=== PATIENT | male | born 1965 | race Caucasian/White ===

== ENCOUNTER 2017-01-27 13:34 | Emergency (ER) | payer MEDICAID ==
[~2017-01-27] VITALS: Ht 180.3 cm; Wt 60.8 kg
[~2017-01-27 13:34] MED LIST: AUGMENTIN1 TA3 PO; BENADRYL 25MG C25 MG PO; CYCLOBENZAPRINE10 M2 OR; FLUTICASONE 50M16 GM; HYDROCODONE-APA1 TA2 PO; IBU600 MG PO; LODINE200 MG PO; NYSTATIN SU60 ML/BOT PO; TAMSULOSIN HYD0.4 M1 PO; VENTOLIN H0.09 MG/Ac IH
[2017-01-27] MEDS ORDERED: ATORVASTATIN CA80 MG PO (13:42)
[2017-01-27] MEDS ORDERED: CYCLOBENZAPRINE10 M1 OR (13:43)
[2017-01-27] MEDS ORDERED: METOPROLOL SUCC50 M4 PO (13:43)
[2017-01-27] MEDS ORDERED: AMITRIPTYLINE H10 M1 PO (13:43)
[2017-01-27] MEDS ORDERED: BRILINTA90 M1 PO (13:44)
[2017-01-27] MEDS ORDERED: ISOSORBIDE MONO60 M1 PO (13:45)
[2017-01-27] MEDS ORDERED: LISINOPRIL5 MG NG (13:45)
[2017-01-27] MEDS ORDERED: TAMSULOSIN HCL0.4 MG PO (13:46)
[2017-01-27] MEDS ORDERED: ALDACTONE 25MG25 MG NG (13:46)
[2017-01-27] MEDS ORDERED: ASPIRIN 81MG TA81 MG PO (13:47)
--- NOTE | 2017-01-27 13:52 | Urgent Treatment Center Report ---
History of Present Issue Date/Time Seen by Provider 01/27/17 7681 Visit Reason Pt arrived:Walked Presenting Problem:PT STATES HIS LEG WENT THROUGHT THE WAGON. Location if Accident: Onset of symptoms date/time:/ or onset unknown for:MEDICAL HX UNKNOWN Have you (or family members/close friends) recently traveled outside the [place]? N If Yes, where/when: Have you had exposure to infectious disease within the past month? TB? Other? Specify: c/o left knee pain x 2 days. Reports that 2 days ago, a tobacco wagon broke and his right leg went through the hole. "I went to my knee with the left one landing on wagon". No pain at that time. Pain didn't start until that evening when pt was on his hands and knees cleaning his bathroom floor. Pain primarily with weight bearing only. ibuprofen helps "briefly". Pain radiates to ankle at times. Denies N/T. No limited ROM. Source patient Exam Limitations no limitations ALLERGIES Coded Allergies: No Known Allergies (09/10/15) Home Medications Reported Medications Albuterol Sulfate (Ventolin Hfa) 0.09 MG IH DAILY #18 Atorvastatin Calcium 80 MG PO DAILY #30 AMITRIPTYLINE HCL (Amitriptyline Hydrochloride) 10 MG PO QHS #90 Metoprolol Succinate (Metoprolol Succinate XL) 50 MG PO DAILY #45 Cyclobenzaprine Hcl 10 MG OR DAILY #30 Ticagrelor (Brilinta) 90 MG PO BID #60 Lisinopril 5 MG NG DAILY #90 Isosorbide Mononitrate (Isosorbide Mononitrate ER) 60 MG PO DAILY #30 Spironolactone (Aldactone) 25 MG NG DAILY #15 TAMSULOSIN HCL (Tamsulosin HCl) 0.4 MG PO DAILY #30 Ibuprofen (Ibu) 800 MG PO TID Cyclobenzaprine Hcl (Cyclobenzaprine Hydrochloride) 10 MG OR DAILY #30 FLUTICASONE PROPIONATE (Fluticasone 50MCG Nasal [place]) 2 SPRAY NA DAILY TAMSULOSIN HCL (Tamsulosin HCl) 0.4 MG PO QHS Diphenhydramine Hcl (Benadryl 25MG CAP) 1-2 CAP PO Q6H PRN ASPIRIN (Aspirin) 81 MG PO DAILY History Medical History General CAD? No Angina: No [place]: No Hypertension? No Hyperlipidemia? No CHF? No COPD? Yes Asthma? No Anemia? No Hernia? No Thyroid Problems? Yes Hypothyroidism? No CVA? No Seizures? No Diabetes? No UTI? No Stones? No GB Disease: No Nephritic Syndrome? No Asplenia? No Hepatitis? No Sickle Cell Disease? No Arthritis? No Cataracts? No Glaucoma? No MRSA? No TB? No Cancer? No Immunization HX DT/Tetanus Unknown Flu 2013-FSN Pneumonia Refuses Surgical Hx Previous Surgery?Y CYST FROM NECK LEFT FOOT Family History Family HX Diabetes Yes CAD No Hypertension Yes Hyperlipidemia Yes Cancer No TB No Social History Smoking Hx Smoker: Current Every Day Smoker Tobacco: Yes Type Cigarettes Packs/day < 1 Pack Alcohol Alcohol: No Review of Systems All Other Systems Reviewed and Negative Musculoskeletal see HPI, denies back pain, denies other (hip, leg, ankle, foot pain) Skin denies change in color, denies lesions, denies lumps, denies rash Psychiatric/Neurological see HPI Physical Exam Vital Signs Vital Signs Date Time Temp Pulse Resp B/P Pulse O2 O2 Flow FiO2 Ox Delivery Rate 01/27 1423 98.4 67 20 100/67 99 01/27 1347 98.4 67 20 100/67 99 General Appearance normal appearance, no apparent distress Respiratory Status No: respiratory distress. Cardiovascular no peripheral edema Peripheral Pulses Pulses normal Yes (PT/DP) Back gait normal Extremities normal inspection of left thigh, knee, lower leg, ankle, foot; mild tenderness left lateral knee only, FROM left knee, negative anterior & posterior drawer tests, negative franco and jacinda tests Strength 5 Lower Ext (L), 5 Lower Ext (R) Neurologic alert, no motor/sensory deficits, oriented x 3 Skin intact, normal color, warm/dry Medical Decision Making LABS/Meds/Orders Pt receiving controlled substance in ED? No Results/Orders Orders Procedure Date/time Status STABILIZE JOINT 01/27 1418 Active KNEE-3 VIEWS-LT 01/27 1340 Active XRAY/CT/US XRAY/CT/US XRAY chest, knee (left) XR interpretation by reviewed by me (w/ Dr. Miranda, ER ) Xray Results no fracture seen, no dislocation, no acute findings Progress [facility] Progress Notes Date 01/27/17 Time 1415 Comment Rvwd dx and POC. Agrees to follow up. refuses crutches. "I have them at home if I decide to use them". STRONGLY enc to use as needed, especially if pain worse with ambulation. States + understanding. Departure Departure Time of Disposition 1419 Disposition DC Home or Self Care(routine) Clinical Impression Primary Impression: Left knee sprain Qualifiers: Encounter type: initial encounter Involved ligament of knee: lateral collateral ligament Qualified Code: S83.422A - Sprain of lateral collateral ligament of left knee, initial encounter Condition STABLE Referrals ELSA VALENZUELA APRN (Family) IMMEDIATELY for new or worsening symptoms OR no noticeable improvement over the next 3-5 days Patient Instructions DI for Knee Sprain, How to Apply an Luis Miguel Wrap, How To Perform RICE (Rest, Ice, Compress, Elevate) Additional Instructions * weight bearing as tolerated. If painful, you should be using crutches. * Rest * ice 15-20 mins 3-4 times a day * Luis Miguel wrap for support and swelling unless in shower. Be sure not too tight but not too loose either * Elevate as discussed as much as possible to help reduce swelling and therefore , pain * Ibuprofen every 6 hours as needed for pain and inflammation. If you need something more, you can take tylenol every 4 hours as needed as long as your primary care provider has told you it is ok to take both. * If no improvement or any persistant symptoms, follow up is important as additional interventions may be necessary. Discharge Counseling Counseled pt/family regarding diagnosis, test results, medications/RX, home care, follow up needs at 1430
[2017-01-27 14:23] VITALS: BP 100/67
--- NOTE | 2017-01-27 15:39 | RADIOLOGY REPORT PS360 ---
KNEE-3 VIEWS-LT COMPARISON: None HISTORY: Left knee pain after recent injury TECHNIQUE: AP lateral and oblique views FINDINGS: The medial and lateral joint space appear normal. Is no fracture or loose body. There is no degenerative change. The patella appears intact and I see no effusion. IMPRESSION: Negative left knee
--- OUTSIDE RECORDS SUMMARY | 2017-02-04 14:19 | External Medical Summary Rpt | CCD ---
Author Author , ROSALBA Organization ROSALBA Address Unknown Phone [email or web address] Care Team Providers Care Flight Readiness Technician Name Role Phone LOLY-OMER AHM, Unavailable Unavailable LOLY-OMER AHM [facility] , Unavailable Unavailable [facility] , Unavailable Unavailable [facility] ALFARIS MOH, ALFARIS Unavailable Unavailable MOH ARAGON, ARAGON Unavailable Unavailable BEINEKE OLGA LIDIA, BEINEKE Unavailable Unavailable OLGA LIDIA HENDERSON ALL, HENDERSON ALL Unavailable Unavailable COMER DB, COMER DB Unavailable Unavailable LIZA EDER, Unavailable Unavailable LIZA EDER ELAYI, ELAYI Unavailable Unavailable [facility] Unavailable Unavailable SERVBLUEGRAS, [facility] SERVBLUEGRAS [facility] Unavailable Unavailable [facility]SP[facility]ATION [facility], [facility] BECKETT, BECKETT Unavailable Unavailable [facility] Unavailable Unavailable INC, [facility] Unavailable [facility]available HOSPITAL P, [facility] [place] AYAH, SOLIS Unavailable Unavailable AYAH [facility], Unavailable Unavailable [facility] BIANCA, BIANCA Unavailable Unavailable BIANCA NAN, BIANCA Unavailable Unavailable NAN [facility] Un[facility], MERLINE Unavailable Unavailable [facility] Un[facility] LARRY JR DWI, LARRY Unavailable Unavailable JR DWI JOHNNIE MJ, JOHNNIE Unavailable Unavailable MJ JOHNNIE MJ, JOHNNIE Unavailable Unavailable MJ ANGIE, ANGIE Unavailable Unavailable ANGIE CON, ANGIE CON Unavailable Unavailable DWIGHT ODALIS, Unavailable Unavailable DWIGHT ODALIS [facility] Unavailable Unavailable [facility] Unavailable [facility]available AMBULANCE SE, [facility] Unavailable Unavailable AMBULANCE , [facility] SE [facility] Unavailable [facility]available HEALTH, [facility] Unavailable Unavailable URGENT TREAT, [facility] PETTEY JAM, PETTEY Unavailable Unavailable JAM RASLAU FLA, RASLAU Unavailable Unavailable FLA SHARP L, SHARP Unavailable Unavailable L KALEB DUGGAN, Unavailable Unavailable KALEB DUGGAN SAHARA PAR, SAHARA PAR Unavailable Unavailable [facility] Unavailable [facility]available [facility], [facility] Unavailable Unavailable [facility], [facility], Unavailable Unavailable [facility]available [facility] HARTLEY TIGIST, HARTLEY Unavailable Unavailable TIGIST CHARISSASHARAN, Unavailable Unavailable LEYLAJAY JAYDONNADELFINA Purpose Continuity of Care Document - 08-09-2013 through 2016 Problems Code Diagnosis DOS Provider Status [id number] ENCOUNTER 12-24-2016 [facility] FOLLOW SURGERY CIRC SYS [id number] PRESENCE 12-24-2016 [facility] IMPLANT[facility] HOSPITALS CARDIAC DEFIBRILLAT OR I255 ISCHEMIC 12-17-2016 [facility]IOMYOP[facility] THY [facility] I517 CARDIOMEGAL 12-17-2016 [facility] E785 HYPERLIPIDE 12-07-2016 [facility] UNSPECIFIED HOSPITALS I2510 [place]SHD [place] 12-07-2016 [facility]CARE ARTERY W/O HOSPITALS ANGINA PECT[place]IS M5430 SCIATICA 12-07-2016 UNSPECIFIED [facility]ALTHCARE SIDE HOSPITALS R001 BRADYCARDIA 11-02-2016 [facility]PEC[facility] R55 SYNCOPE AND 11-02-2016 [facility] COLLAPSE [facility] R69 ILLNESS 11-02-2016 [facility] UNSPECIFIED TRANSPORTAT ION SER R9431 ABNORMAL 11-02-2016 [facility] ELECTROCARD SERV IOGRAM [facility] [id number] PERSONAL 11-02-2016 [facility] H[facility] OF SERV NICOTINE [facility] DEPENDENCE J0100 ACUTE 09-24-2016 [facility] SINUSITIS SOLUTIONS UNSPECIFIED IN I252 OLD 07-20-2016 [facility] I5020 UNSPECIFIED 07-20-2016 [facility] SYSTOLIC [facility] CONGESTIVE [facility] HEART FAILURE R42 DIZZINESS 07-20-2016 [facility] GIDDINESS HOSPITALS Z720 TOBACCO USE 07-20-2016 [facility]ALTH[facility]ARE HOSPITALS Z955 PRESENCE OF 07-20-2016 [facility] ANGIOPLASTY HOSPITALS IMPLANT & GRAFT J208 ACUTE 06-23-2016 [facility] BRONCHITIS [facility]ALTH DUE TO SOLUTIONS OTHER SPEC IN ORGANISMS R05 COUGH 06-23-2016 [facility] SOLUT[facility] IN I2129 ST 04-22-2016 [facility] ELEVATION [facility] MYOCARDIAL SOLUTIONS INFARCT IN [facility] SITES I9589 OTHER 04-22-2016 [facility] HYPOTENSION HEALTH SOLUTIONS IN R0789 OTHER CHEST 04-22-2016 [facility] PAIN HEALTH SOLUTIONS IN R0600 DYSPNEA 04-13-2016 UNSPECIFIED [facility]ALTHCARE HOSPITALS I2119 ST 03-29-2016 [facility] PR INVOLV [facility] OTH CORONARY ART INF WALL I493 VENTRICULAR 03-29-2016 [facility] PREMATURE [facility] DEPOLARIZAT FOUNDATION ION I499 CARDIAC 03-29-2016 [facility] ARRHYTHMIA SERV UNSPECIFIED FOUNDATION I2111 ST 03-27-2016 [facility] MYOCARDIAL [facility] INFARCTION INVOLVING RCA I213 ST 03-27-2016 [facility] MYOCARDIAL [facility] INFARCTION UNS SITE I2582 CHRONIC 03-27-2016 [facility] TOTAL [facility] OCCLUSION [facility]OUND[facility] OF CORONARY ARTERY I4581 LONG QT 03-27-2016 [facility] SYNDROME SERV [facility] I472 VENTRICULAR 03-27-2016 [facility] TACHYCARDIA F[facility] I498 OTHER 03-27-2016 [facility] SPECIFIED SERV CARDIAC FOUNDATION ARRHYTHMIAS I959 HYPOTENSION 03-27-2016 [facility] UNSPECIFIED AMBULANCE SE R0602 SHORTNESS 03-27-2016 [facility] BREATH SERV [facility] Z743 NEED FOR 03-27-2016 [facility] CONTINUOUS [place] SUPERVISION E041 NONTOXIC 03-18-2016 [facility] THYROID NODULE J449 CHRONIC 03-18-2016 [facility] PULMONARY DISEASE UNS K219 GASTRO-ESOP 03-18-2016 [facility] DISEASE WITHOUT ESOPHAGITIS R4020 UNSPECIFIED 03-18-2016 [facility] COMA [facility] R918 OTHER 03-18-2016 [facility] ABNORMAL FINDING OF LUNG FIELD Z86643 OTHER LONG 03-18-2016 [facility] CURRENT DRUG THERAPY Z833 FAMILY 03-18-2016 [facility] DIABETES MELLITUS Y69579 PERSONAL 03-18-2016 [facility] TRAUMATIC BRAIN INJURY M5431 SCIATICA 02-21-2016 [facility] URGENT TREAT [id number] PAIN IN 01-17-2016 [place] [facility] M7022 OLECRANON 01-17-[address] [facility] BURSITIS PHYSICIANS LEFT ELBOW GROUP [id number] PAIN IN 12-20-2015 [place] LEFT MEDICAL FINGERS IM[facility] ASS X74486 PAIN IN 12-20-2015 [facility]NSPECIFIED [facility] FINGERS INC M7021 OLECRANON 12-17-2015 [facility] RIGHT [facility]BOW URGENT TREAT G544 LUMBOSACRAL 09-13-2015 [facility] ROOT [facility] DISORDERS INC NEC M545 LOW BACK 09-13-2015 [facility] PAIN [facility] INC E782 MIXED 09-05-2015 [facility] HYPERLIPIDE [facility] URGENT TREAT J301 ALLERGIC 09-05-2015 [facility] RHINITIS [facility] DUE TO URGENT POLLEN TREAT J441 CHRONIC 09-05-2015 [facility] OBSTRUCTIVE [facility] PULMONARY URGENT DZ TREAT W/EXACERBAT ION N401 BENIGN 09-05-2015 [facility] PROSTATIC [facility] HYPERPLASIA URGENT LW URINARY TREAT TRACT SX 2768 HYPOPOTASSE 09-28-2014 [facility] P 59073 RESTLESS 09-28-2014 [facility] SYNDROME INC 4739 UNSPECIFIED 09-28-2014 [facility] SINUSITIS [facility] INC 496 CHRONIC 09-28-2014 [place] [facility]AY MEDICAL OBSTRUCTION IMAGING ASS NEC 5849 ACUTE 09-28-2014 [facility] P UNSPECIFIED 16920 HYPERTROPHY 09-28-2014 [facility] PROSTATE [facility] W/O UR OBST INC & OTH LUTS 7802 SYNCOPE AND 09-28-2014 [facility] COLLAPSE [facility] AMBULANCE SE 7804 DIZZINESS 09-28-2014 [facility] P 7808 GENERALIZED 09-28-2014 [facility] [place] [address] SHORTNESS 09-28-2014 [place] OF BREATH MEDICAL IMAGING ASS 78766 NAUSEA WITH 09-28-2014 [facility] [place]ITING [place] [address] OTHER 09-28-2014 [place] NONSPECIFIC MEDICAL ABNORMAL IMAGING ASS FINDING OF LUNG FIELD 470 DEVIATED 08-31-2014 [facility] NASAL [facility] SEPTUM [facility]OUND[facility] 4780 HYPERTROPHY 08-31-2014 [facility] OF NASAL SERV TURBINATES FOUNDATION 31406 ESOPHAGEAL 08-31-2014 [facility] V7284 UNSPECIFIED 08-31-2014 [facility] PRE-OPERATI VE EXAMINATION 77080 OTHER 06-26-2014 [facility] NASAL CAVITY AND SINUSES 5239 UNSPECIFIED 06-26-2014 [facility] AND PERIODONTAL DISEASE 7099 UNSPECIFIED 06-26-2014 [facility] SKIN&SUBCUT ANEOUS TISSUE 7840 HEADACHE 06-26-2014 [facility] 4610 ACUTE 04-03-2014 JOHNNIETOMMIE BARKER MAXILLARY SINUSITIS 4611 ACUTE 04-03-2014 [facility]NNIETOMMIE BARKER FRONTAL SINUSITIS 2410 NONTOXIC 03-28-2014 [facility] UNINODULAR [facility] GOITER INC 7213 LUMBOSACRAL 03-28-2014 [place] [facility] SPONDYLOSIS IMAGING ASS WITHOUT MYELOPATHY 2374 NEOPLASM 03-15-2014 [place] [facility] UNCERTAIN SERV BHV [facility] OTH&UNSPEC ENDOCRN GLANDS 2409 GOITER, 03-15-2014 [facility] 4779 ALLERGIC 02-26-2014 J[facility]IE BARKER RHINITIS CAUSE UNSPECIFIED 12402 UNSPECIFIED 02-26-2014 [facility] BARK[facility] ARTHROPATHY MULTIPLE SITES 7242 LUMBAGO 02-26-2014 J[facility] BARKER 4928 OTHER 02-13-2014 [facility] EMPHYSEMA [facility] INC 59724 OBSTRUCTIVE 01-16-2014 JOHNNIE BARKER CHRONIC BRONCHITIS WITHOUT EXACERBAT V5419 AFTERCARE 01-04-2014 [place] HEALING MEDICAL TRAUMATIC IMAGING ASS FRACTURE OTHER BONE 71359 PAIN IN 11-22-2013 [facility] JOINT, SITE [facility] INC UNSPECIFIED 93268 URINARY 11-22-2013 [facility] FREQUENCY [facility] INC V700 ROUTINE 11-14-2013 JOH[facility] BARKER GENERAL MEDICAL EXAM@HEALTH CARE FACL 43030 THYROTOX 10-25-2013 [facility] W/O SERV GOITER/OTH FOUNDATIO CAUSE W/O CRISIS 16554 OTHER 10-25-2013 [facility] DISEASES OF SERV LUNG NOT FOUNDATIO ELSEWHERE CLASSIFIED 92052 10-25-2013 [facility] TRANSPORT[facility] ION SER V711 OBSERVATION 10-25-2013 [facility] SUSPECTED MALIGNANT NEOPLASM 67256 CLOSED 10-11-[address] [facility] FRACTURE OF PHYSICIANS SHAFT OF GROUP METACARPAL BONE 7822 LOCALIZED 10-07-2013 [place] SUPERFICIAL MEDICAL SWELLING IMAGING ASS [place] LUMP 47818 CLOSED 10-07-2013 [facility] FRACTURE N EMERGENCY METACARPAL PHYS BONE SITE UNSPECIFIED E9289 UNSPECIFIED 10-07-2013 [facility] EMERGENCY PHYS 49171 CLOSED 08-21-2013 [facility] FRACTURE OF RADIOLOGY ONE RIB ASSOCIAT 33186 SOLITARY 08-14-2013 [facility] PULMONARY [facility] NODULE [facility] 8483 SPRAIN AND 08-14-2013 [facility] STRAIN OF [facility] RIBS [facility] 32639 CHEST PAIN 08-09-2013 [facility] UNSPECIFIED RADIOLOGY ASSOCIAT 9599 INJURY 08-09-[facility] OTHER AND RADIOLOGY UNSPECIFIED ASSOCIAT UNSPECIFIED SITE Allergies, Adverse Reactions, Alerts Clinical Alert Notifications Alert Asthma: absence of controller with h/o SA beta agonist Asthma: no influenza vaccine in the last 365 days Medications Na ND Rx Da Fi Fi Am Da Di Ph RX Ph St me C No te ll ll ou ys ag ar # ys at rm s nt no ma ic us Or Da si cy ia de te s n re d BR 00 09 10 60 30 00 CA Ac IL 18 -1 -0 .0 00 RL ti IN 60 1- 6- 00 00 IS ve TA 77 20 20 76 LE 76 17 17 [address] UG MG S TA BL ET CY 69 09 10 30 30 00 CA Ac CL 09 -1 -0 .0 00 RL ti OB 70 6 00 IS ve EN 84 20 20 77 LE ZA 61 17 17 71 RI 5 37 IN UG E S 10 MG TA BL ET SP 53 09 10 15 30 00 CA Ac IR 74 -1 -0 .0 00 RL ti ON 60 00 IS ve OL 51 20 20 77 LE AC 11 17 17 92 TO 0 08 NE UG S 25 MG TA BL ET ME 49 09 10 45 30 00 CA Ac TO 88 -1 -0 .0 00 RL ti RI 40 00 IS ve OL 82 20 20 77 LE OL 61 17 17 92 0 09 WALKER UG CC S ER 50 MG TA B IS 68 09 09 30 30 00 CA Ac OS 38 -0 -2 .0 00 RL ti OR 20 9- 00 00 IS ve BI 65 20 20 78 LE DE 10 17 17 04 1 01 MN UG S ER 60 MG TA BL ET AM 16 09 09 90 30 00 CA Ac IT 72 -0 -2 .0 00 RL ti RI 90 9- 00 00 IS ve PT 17 20 20 77 LE YL 11 17 [address] E UG HC S L 10 MG TA B TA 57 09 09 30 30 00 CA Ac MS 23 -0 -2 .0 00 RL ti UL 70 6- 9- 00 00 IS ve OS 01 20 20 77 LE IN 40 17 17 60 5 33 HC UG L S 0. 4 MG CA PS UL E AT 00 09 09 30 30 00 CA Ac OR 37 -0 -2 .0 00 RL ti VA 83 2- 9- [address] 95 20 20 76 LE AT 30 17 17 76 IN 5 70 UG 80 S MG TA BL ET AC 00 08 09 10 2 00 CA Ac ET 09 -2 -2 .0 00 RL ti AM 30 4- 2- 00 IS ve IN 15 20 20 77 LE OP 00 17 [address] Hyatt- UG CO S D #3 TA BL ET BR 00 08 09 60 30 00 CA Ac IL 18 -1 -0 .0 00 RL ti IN 60 0- 8- 00 00 IS ve TA 77 20 20 76 LE 76 17 17 [address] LLANOS MG S TA BL ET CY 69 08 09 30 30 00 CA Ac CL 09 -1 -0 .0 00 RL ti OB 70 4- 8- 00 00 IS ve EN 84 20 20 77 LE ZA 61 17 [address] ABBASI UG E S 10 MG TA BL ET SP 53 08 09 15 30 00 CA Ac IR 74 -1 -0 .0 00 RL ti ON 60 4- 8- 00 00 IS ve OL 51 20 20 77 LE AC 11 17 [address] BEACH UG S 25 MG TA BL ET ME 49 08 09 45 30 00 CA Ac TO 88 -1 -0 .0 00 RL ti RI 40 4- 8- 00 00 IS ve OL 82 20 20 77 LE OL 61 17 [address] AARON LLANOS CC S ER 50 MG TA B IS 68 08 09 30 30 00 CA Ac OS 38 -0 -0 .0 00 RL ti OR 20 5- 1- 00 00 IS ve BI 65 20 20 76 LE DE 10 17 [address] CRUZ UG S ER 60 MG TA BL ET AM 16 08 09 90 30 00 CA Ac IT 72 -0 -0 .0 00 RL ti RI 90 5- 1- 00 00 IS ve PT 17 20 20 77 LE YL 11 17 17 [address] Khushbu LLANOS HC S L 10 MG TA B AT 00 08 09 30 30 00 CA Ac OR 37 -0 -0 .0 00 RL ti VA 83 3- 1- [address] 95 20 20 76 LE AT 30 17 17 [address] LLANOS 80 S MG TA BL ET TA 57 08 09 30 30 00 CA Ac MS 23 -0 -0 .0 00 RL ti UL 70 8- 1- 00 00 IS ve OS 01 20 20 77 LE IN 40 17 [address] NIEVES UG L S 0. 4 MG CA PS UL E ME 49 07 08 30 30 00 CA Ac TO 88 -2 -2 .0 00 RL ti RI 40 8- 5- 00 00 IS ve OL 82 20 20 77 LE OL 61 17 [address] WALKER UG CC S ER 50 MG TA B CY 69 07 08 30 30 00 CA Ac CL 09 -2 -1 .0 00 RL ti OB 70 1- 8- 00 00 IS ve EN 84 20 20 77 LE ZA 61 17 [address] IN UG E S 10 MG TA BL ET BR 00 07 08 60 30 00 CA Ac IL 18 -0 -0 .0 00 RL ti IN 60 8- 4- 00 00 IS ve TA 77 20 20 76 LE 76 17 17 [address] UG MG S TA BL ET AT 00 07 07 30 30 00 CA Ac OR 37 -0 -2 .0 00 RL ti VA 83 3- 8- [address] 95 20 20 76 LE AT 30 17 17 [address] 80 S MG TA BL ET IS 68 07 07 30 30 00 CA Ac OS 38 -0 -2 .0 00 RL ti OR 20 3 8- 00 IS ve BI 65 20 20 76 LE DE 10 17 [address] CRUZ UG S ER 60 MG TA BL ET AM 16 07 07 90 30 00 CA Ac IT 72 -0 -2 .0 00 RL ti RI 90 3 8- 00 IS ve PT 17 20 20 77 LE YL 11 17 [address] E HC S L 10 MG TA B TA 00 07 07 30 30 00 CA Ac MS 78 -0 -2 .0 00 RL ti UL 12 3- 8- 00 00 IS ve OS 07 20 20 77 LE IN 60 17 [address] HC UG L S 0. 4 MG CA PS UL E CY 69 06 07 30 30 00 CA Ac CL 09 -2 -2 .0 00 RL ti OB 70 3- - 00 00 IS ve EN 84 20 20 77 LE ZA 61 17 [address] IN UG E S 10 MG TA BL ET VE 00 06 07 18 16 00 CA Ac NT 17 -2 -2 .0 00 RL ti OL 30 8- - 00 00 IS ve IN 68 20 20 77 LE 22 17 [address] Zhong 90 S MC G IN VELASCO LE R LI 06 07 90 90 00 CA Ac SI 18 -2 -2 .0 00 RL ti NO 00 2- - 00 IS ve RI 51 20 20 77 LE IL 30 17 17 68 5 3 09 UG MG S TA BL ET LI 68 06 07 30 30 00 CA Ac SI 18 -1 -1 .0 00 RL ti NO 00 7- 4- 00 00 IS ve RI 51 20 20 77 LE IL 20 17 [address] 2[address] UG 5 S MG TA BL ET BR 00 06 06 60 30 00 CA Ac IL 18 -0 -3 .0 00 RL ti IN 60 6- 0- 00 00 IS ve TA 77 20 20 76 LE 76 17 17 [address] UG MG S TA BL ET AM 16 06 06 90 30 00 CA Ac IT 72 -0 -3 .0 00 RL ti RI 90 1- 0- 00 00 IS ve PT 17 20 20 77 LE YL 11 17 [address] E UG HC S L 10 MG TA B TA 00 06 06 30 30 00 CA Ac MS 78 -0 -3 .0 00 RL ti UL 12 7- 0- 00 00 IS ve OS 07 20 20 77 LE IN 60 17 [address] HC UG L S 0. 4 MG CA PS UL E CE 57 05 06 20 10 00 CA Ac FD 23 -2 -2 .0 00 RL ti IN 70 6- 3- 00 00 IS ve IR 09 20 20 77 LE 96 17 17 [address] 0 UG MG S CA PS UL E LI 68 05 30 30 00 CA Ac SI 18 -2 -2 .0 00 RL ti NO 00 5- 3- 00 00 IS ve RI 51 20 20 77 LE IL 20 17 [address] 2[address] UG 5 S MG TA BL ET CY 69 05 06 30 30 00 CA Ac CL 09 -2 -2 .0 00 RL ti OB 70 5- 3- 00 00 IS ve EN 84 20 20 77 LE ZA 61 17 [address] IN UG E S 10 MG TA BL ET AT 00 05 30 30 00 CA Ac OR 37 -3 -2 .0 00 RL ti VA 83 1- 3- [address] 95 20 20 76 LE AT 30 17 17 [address] UG 80 S MG TA BL ET IS 68 05 06 30 30 00 CA Ac OS 38 -3 -2 .0 00 RL ti OR 20 1- 3- 00 00 IS ve BI 65 20 20 76 LE DE 10 17 [address] MN UG S ER 60 MG TA BL ET ME 49 05 06 30 30 00 CA Ac TO 88 -3 -2 .0 00 RL ti RI 40 1- 3- 00 00 IS ve OL 82 20 20 77 LE OL 61 17 [address] WALKER UG CC S ER 50 MG TA B BR 00 05 06 60 30 00 CA Ac IL 18 -0 -0 .0 00 RL ti IN 60 8- 2- 00 00 IS ve TA 77 20 20 76 LE 76 17 17 [address] UG MG S TA BL ET TA 00 05 05 30 30 00 CA Ac MS 78 -0 -2 .0 00 RL ti UL 12 3- 6- 00 00 IS ve OS 07 20 20 76 LE IN 60 17 17 68 1 45 HC UG L S 0. 4 MG CA PS UL E AT 00 05 05 30 30 00 CA Ac OR 37 -0 -2 .0 00 RL ti VA 83 3- 6- [address] 95 20 20 76 LE AT 30 17 17 [address] UG 80 S MG TA BL ET ME 49 05 05 30 30 00 CA Ac TO 88 -0 -2 .0 00 RL ti RI 40 1- 6- 00 IS ve OL 82 20 20 77 LE OL 61 17 [address] WALKER UG CC S ER 50 MG TA B LI 68 04 05 30 30 00 CA Ac SI 18 -2 -1 .0 00 RL ti NO 00 00 IS ve RI 51 20 20 77 LE IL 20 17 [address] 2[address] UG 5 S MG TA BL ET CY 69 04 05 30 30 00 CA Ac CL 09 -2 -1 .0 00 RL ti OB 70 6 9- 00 IS ve EN 84 20 20 77 LE ZA 61 17 [address] IN UG E S 10 MG TA BL ET AM 00 04 04 90 30 00 CA Ac IT 78 -0 -2 .0 00 RL ti RI 11 - 8- 00 IS ve PT 48 20 20 76 LE YL 61 17 17 [address] Khushbu UG HC S L 10 MG TA B TA 00 04 04 30 30 00 CA Ac MS 78 -0 -2 .0 00 RL ti UL 12 3- 8- 00 00 IS ve OS 07 20 20 76 LE IN 60 17 17 68 1 45 HC UG L S 0. 4 MG CA PS UL E BR 00 04 04 60 30 00 CA Ac IL 18 -0 -2 .0 00 RL ti IN 60 3- 8- 00 00 IS ve TA 77 20 20 76 LE 76 17 17 76 90 0 69 UG MG S TA BL ET AT 00 04 04 30 30 00 CA Ac OR 37 -0 -2 .0 00 RL ti VA 83 3- 8- [address] 95 20 20 76 LE AT 30 17 17 [address] UG 80 S MG TA BL ET ME 00 04 04 60 30 00 CA Ac TO 37 -0 -2 .0 00 RL ti RI 80 3- 8- 00 00 IS ve OL 01 20 20 76 LE OL 80 17 17 76 1 73 TA UG RT S RA TE 25 MG TA B IS 68 04 04 30 30 00 CA Ac OS 38 -0 -2 .0 00 RL ti OR 20 3- 8- 00 00 IS ve BI 65 20 20 76 LE DE 10 17 17 89 1 31 MN UG S ER 60 MG TA BL ET NI 43 04 04 25 6 00 CA Ac TR 59 -0 -2 .0 00 RL ti OG 80 3- 8- 00 00 IS ve LY 43 20 20 77 LE CE 61 17 17 28 RI 1 42 N UG 0. S 4 MG TA BL ET SL CY 00 03 04 30 30 00 CA Ac CL 60 -2 -2 .0 00 RL ti OB 33 7- 1- 00 00 IS ve EN 07 20 20 76 LE ZA 92 17 [address] IN UG E S 10 MG TA BL ET LI 68 03 04 30 30 00 CA Ac SI 18 -2 -2 .0 00 RL ti NO 00 7- 1- 00 00 IS ve RI 51 20 20 77 LE IL 20 17 [address] 2[address] UG 5 S MG TA BL ET AM 00 03 03 90 30 00 CA Ac IT 78 -0 -3 .0 00 RL ti RI 11 6- 1- 00 00 IS ve PT 48 20 20 76 LE YL 61 17 [address] E UG HC S L 10 MG TA B RO 00 02 03 12 4 00 CA Ac BA 90 -2 -2 0. 00 RL ti FE 46 8- 4- 00 00 IS ve N 30 20 20 0 77 LE DM 62 17 [address] CO UG UG S H LI QU ID AZ 60 02 03 6. 5 00 CA Ac IT 50 -2 -2 00 00 RL ti HR 52 8- 4- 0 00 IS ve OM 58 20 20 77 LE YC 10 17 [address] UG 25 S 0 MG TA BL ET VE 00 02 03 18 16 00 CA Ac NT 17 -2 -2 .0 00 RL ti OL 30 7- 4- 00 00 IS ve IN 68 20 20 75 LE 22 17 [address] Zhong UG 90 S MC G IN VELASCO LE R CY 00 02 03 30 30 00 CA Ac CL 60 -2 -2 .0 00 RL ti OB 33 7- - 00 IS ve EN 07 20 20 76 LE ZA 93 17 [address] IN UG E S 10 MG TA BL ET TA 00 02 03 30 30 00 CA Ac MS 78 -2 -2 .0 00 RL ti UL 12 00 IS ve OS 07 20 20 76 LE IN 60 17 [address] NIEVES UG L S 0. 4 MG CA PS UL E BR 00 02 03 60 30 00 CA Ac IL 18 -2 -2 .0 00 RL ti IN 60 00 IS ve TA 77 20 20 76 LE 76 17 17 76 90 0 69 UG MG S TA BL ET AT 00 02 03 30 30 00 CA Ac OR 37 -2 -2 .0 00 RL ti VA 83 7- [address] 95 20 20 76 LE AT 30 17 17 [address] LLANOS 80 S MG TA BL ET IS 68 02 30 30 00 CA Ac OS 38 -2 -2 .0 00 RL ti OR 20 10-27- 00 IS ve BI 65 20 20 76 LE DE 10 17 [address] CRUZ UG S ER 60 MG TA BL ET ME 62 02 03 30 30 00 CA Ac TO 03 -2 -2 .0 00 RL ti RI 70 7- 4- 00 IS ve OL 83 20 20 76 LE OL 01 17 [address] WALKER UG CC S ER 25 MG TA B CY 00 02 30 30 00 CA Ac CL 60 -3 -2 .0 00 RL ti OB 33 00 IS ve EN 07 20 20 76 LE ZA 93 17 17 47 RI 2 51 IN UG E S 10 MG TA BL ET TA 00 01 02 30 30 00 CA Ac MS 78 -3 -2 .0 00 RL ti UL 12 00 IS ve OS 07 20 20 76 LE IN 60 17 17 68 1 45 HC UG L S 0. 4 MG CA PS UL E BR 00 01 02 60 30 00 CA Ac IL 18 -3 -2 .0 00 RL ti IN 60 00 IS ve TA 77 20 20 76 LE 76 17 17 76 90 0 69 UG MG S TA BL ET AT 00 02 30 30 00 CA Ac OR 37 -3 -2 .0 00 RL ti VA 83 1- 4- [address] 95 20 20 76 LE AT 30 17 17 [address] LLANOS 80 S MG TA BL ET VE 00 01 02 18 16 00 CA Ac NT 17 -2 -1 .0 00 RL ti OL 30 4- 7- 00 00 IS ve IN 68 20 20 75 LE 22 17 [address] Trevin LLANOS 90 S MC G IN VELASCO LE R ME 62 01 30 30 00 CA Ac TO 03 -1 -1 .0 00 RL ti RI 70 8- 0- 00 00 IS ve OL 83 20 20 76 LE OL 01 17 17 89 0 32 WALKER UG CC S ER 25 MG TA B IS 68 04 27 30 30 00 CA Ac OS 38 -1 -1 .0 00 RL ti OR 20 8- 0- 00 00 IS ve BI 65 20 20 76 LE DE 10 17 [address] CRUZ UG S ER 60 MG TA BL ET CY 65 04 26 30 30 00 CA Ac CL 16 -0 -2 .0 00 RL ti OB 20 2- 7- 00 00 IS ve EN 54 20 20 76 LE ZA 11 17 [address] ABBASI UG E S 10 MG TA BL ET AM 00 04 26 90 30 00 CA Ac IT 78 -0 -2 .0 00 RL ti RI 11 2- 7- 00 00 IS ve PT 48 20 20 76 LE YL 61 17 [address] Khushbu UG HC S L 10 MG TA B TA 00 04 26 30 30 00 CA Ac MS 78 -0 -2 .0 00 RL ti UL 12 2- 7- 00 00 IS ve OS 07 20 20 76 LE IN 60 17 17 68 1 45 HC UG L S 0. 4 MG CA PS UL E AT 00 04 26 30 30 00 CA Ac OR 37 -0 -2 .0 00 RL ti VA 83 2- 7- [address] 95 20 20 76 LE AT 30 17 17 [address] LLANOS 80 S MG TA BL ET IS 68 04 26 30 30 00 CA Ac OS 38 -0 -2 .0 00 RL ti OR 20 2- 7- 00 00 IS ve BI 65 20 20 76 LE DE 00 17 17 76 1 71 MN UG S ER 30 MG TA BL ET BR 00 12 01 60 30 00 CA Ac IL 18 -2 -2 .0 00 RL ti IN 60 2- 0- 00 00 IS ve TA 77 20 20 76 LE 76 16 17 [address] UG MG S TA BL ET LI 68 12 01 30 30 00 CA Ac SI 18 -2 -2 .0 00 RL ti NO 00 2- 0- 00 00 IS ve RI 51 20 20 76 LE IL 30 16 17 [address] UG MG S TA BL ET ME 00 12 01 18 90 00 CA Ac TO 37 -1 -1 0. 00 RL ti RI 80 9- 3- 00 00 IS ve OL 01 20 20 0 76 LE OL 80 16 [address] TA UG RT S RA TE 25 MG TA B Results Labs Lab Lab Date Result Refere Interp Status Commen Order Detail nces retati t Range on Magnesium SerPl-mCnc (10-05-2016 09:45) Magnesi 2.1 1.9-2.4 complet um 017 mg/dL ed SerPl-m 09:45 Cnc NT-proBNP SerPl-mCnc (10-05-2016 09:45) NT-proB 749 0-899 complet LEHR TENDER 017 pg/mL ed SerPl-m 09:45 Cnc Procedures Procedure DOS Code Location Performer Comment RADIOLOGI [address] [place] ANGIE C 7 MEDICAL EXAMINATI SERV ON CHEST FOUNDATIO SINGLE N VIEW FRONTAL INSJ/RPLC 46111 [place] ELAYI MT PERM 7 MEDICAL DFB SERV W/TRNSVNS FOUNDATIO LDS N 1/DUAL CHMBR NONEMERG A0120 FEDERATED FEDERATED TRNSPRT: 7 MINI-BUS TRANSPORT TRANSPORT MTN ATION SER ATION SER AREA/OTH SYS ECG 25077 [place] MERLINE ROUTINE 7 MEDICAL ECG SERV W/LEAST FOUNDATIO 12 LDS N I&R ONLY NONEMERG A0120 FEDERATED FEDERATED TRNSPRT: 7 MINI-BUS TRANSPORT TRANSPORT MTN ATION SER ATION SER AREA/OTH SYS NONEMERG A0120 FEDERATED FEDERATED TRNSPRT: 7 MINI-BUS TRANSPORT TRANSPORT MTN ATION SER ATION SER AREA/OTH SYS CARDIAC 86768 [place] MAGGIEGUROVSK MRI W/WO 7 MEDICAL AYA CONTRAST SERV & FURTHER FOUNDATIO SEQ N INJECTION 04-05-201 A9585 [place] 7 HEALTHCAR HEALTHCAR GADOBUTRO E E L 0.1 ML [facility] CARDIAC 55196 [place] WHITESIDE MRI FOR 7 MEDICAL AYA VELOCITY SERV FLOW FOUNDATIO MAPPING N NONINVASI 54193 [place] VE 7 HEALTHCAR HEALTHCAR EAR/PULSE E E OXIMETRY [facility] SINGLE DETER ECG 83675 [place] MERLINE ROUTINE 6 MEDICAL ECG SERV W/LEAST FOUNDATIO 12 LDS N I&R ONLY NATRIURET [id number] [facility] IC 6 [facility] [place] [address] [facility] MAGNESIUM 6 [facility] COLLECTIO 54907 [facility] N VENOUS 6 [facility]ALTHCAR HEALTHCAR BLOOD E E VENIPUNCT [facility] URE BASIC 19017 [facility] METABOLIC 6 HEALTHCAR HEALTHCAR PANEL E E CALCIUM [facility] TOTAL ECG 67921 BARRY BECKETT ROUTINE 6 MEDICAL ECG SERV W/LEAST FOUNDATIO 12 LDS N I&R ONLY ECG 25674 BARRY RICK CHI ROUTINE 6 MEDICAL ECG SERV W/LEAST FOUNDATIO 12 LDS N I&R ONLY PRQ 51704 BARRY LOLY-LAT TRLUML 6 MEDICAL IF AHM CORONRY SERV TOT FOUNDATIO OCCLUS N REVASC PR ONE VSL AMB A0427 [facility] SERVICE 6 [facility] ALS AMBULANCE AMBULANCE EMERGENCY SE SE TRANSPORT LEVEL 1 RADIOLOGI 66537 B[facility]Y ANGIE CON C 6 MEDICAL EXAMINATI SERV ON CHEST FOUNDATIO SINGLE N VIEW FRONTAL GROUND A0425 [facility] MILEAGE 6 [facility] PER AMBULANCE AMBULANCE STATUTE SE SE MILE AMB A0431 AIR AIR SERVICE 6 METHODS METHODS CONVNTION [facility] AIR SRVC TRANSPORT [address] HEMOGLOBI 94941 [facility] N 6 Y Y [facility] DAWIT A1C COLLECTIO 91872 [facility] N VENOUS 6 Y Y BLOOD [facility] VENIPUNCT URE ORGANIC 35215 [facility] ACID 1 6 Y Y [facility] [place] ARTHROCEN [address] [facility] PETTE[facility] TESIS 6 PHYSICIAN MARITZA ASPIR&/IN S GROUP J INTERM JT/BURS W/O US INJ [id number] [facility] BETAMETHA 6 PHYSICIAN MARITZA SONE S GROUP ACETATE & PHOSPHATE 3 MG NONEMERG A0120 FEDERATED FEDERATED TRNSPRT: 6 MINI-BUS TRANSPORT TRANSPORT MTN [facility]/OT SYS RADEX 92038 [place] [facility] ALL ELBOW 6 MEDICAL COMPLETE IMAGING MINIMUM 3 ASS VIEWS RADEX 38203 [place] [facility] ALL FINGR 6 MEDICAL MINIMUM 2 IMAGING VIEWS ASS ELECTROEN 72657 [facility]NA LYONS CEPHALOGR 6 [facility] AM W/REC INC INC AWAKE&CONNOR WSY THERAPEUT 92070 S[facility]NA LYONS IC PX 1/> 6 [facility] AREAS INC INC EACH 15 MIN EXERCISES THERAPEUT 30254 SERENA LYONS IC PX 1/> 6 [facility] AREAS INC INC EACH 15 MIN EXERCISES APPL 58599 SERENA LYONS MODALITY 6 [facility] 1/> AREAS INC INC ULTRASOUN D EA 15 MIN PHYSICAL 22145 [facility] THERAPY 6 [facility] EVALUATIO INC INC N NONEMERG A0120 FEDERATED FEDERATED TRNSPRT: 6 MINI-BUS TRANSPORT TRANSPORT MTN ATMARY [facility] [address] [place] TANJA HEAD/BRAI 6 MEDICAL OLGA LIDIA N W/O IMAGING CONTRAST ASS MATERIAL HANDLG&/O 39471 TITA VALENZUELA R CONVEY 6 [facility] OF SPEC URGENT FOR TR TREAT OFFICE TO LAB COLLECTIO 66078 TITA Hyatt VENOUS 6 [facility] BLOOD URGENT VENIPUNCT TREAT URE COLLECTIO 57096 [facility] LYONS N VENOUS 5 [facility] BLOOD INC INC VENIPUNCT URE BASIC 84022 SERENA LYONS METABOLIC 5 [facility] PANEL INC INC [facility] G0378 SERENA LYONS OBSERVATI 5 [facility] ON INC INC SERVICE [facility] G0378 SERENA SERENA OBSERVATI 5 [facility] ON INC INC SERVICE PER HOUR RADIOLOGI 43942 [facility] HENDERSON ALL C EXAM 5 MEDICAL CHEST 2 IMAGING VIEWS ASS FRONTAL&L ATERAL ECG 01088 SERENA JUAREZ JR ROUTINE 5 [facility] W/LEAST P 12 LDS I&[place] [address] S[facility] LY[facility] INFUSION 5 [facility] THERAPY/P INC INC ROPHYLAXI S /DX 1ST TO 1 HR CREATINE 17494 SERENA LYONS KINASE MB 5 [facility] FRACTION INC INC ONLY COMPREHEN 86229 S[facility]NA L[facility] SIVE 5 [facility] METABOLIC INC INC PANEL GROUND A0425 [facility] MILEAGE 5 [facility] PER AMBULANCE AMBULANCE STATUTE SE SE MILE AMBULANCE A0429 [facility] SERVICE 5 [facility] BL AMBULANCE AMBULANCE EMERGENCY SE SE TRANSPORT TOBACCO 28457 SERENA LYONS USE 5 [facility] CESSATION INC INC INTERMEDI ATE 3-10 MINUTES AMB A0422 [facility] OXYGEN&O2 5 [facility] SUPPLIES AMBULANCE AMBULANCE LIFE SE SE SUSTAININ G SITUATION RADEX 22898 [facility] ALL ABDOMEN 5 MEDICAL COMPL IMAGING W/DCBTS&/ ASS ERC VIEWS ECG 94926 [facility] LYONS ROUTINE 5 [facility] ECG INC INC W/LEAST 12 LDS TRCG ONLY W/O I&[place] [address] [facility] LY[facility] TROPONIN 5 [facility] QUANTITAT INC INC [place] BLOOD 40497 [facility] COUNT 5 [facility] COMPLETE INC INC AUTO&AUTO DIFRNTL WBC CREATINE 24777 [facility] KINASE 5 [facility] TOTAL INC INC RHEUMATOI 66228 [facility] Y Y [facility] [place] HEPATITIS 64418 [facility] C [address] [facility] BLOOD 93309 [facility] UNIVERSIT COUNT 5 Y Y [facility] AUTOMATED ECG 59983 [facility] ROUTINE 5 Y Y ECG HOSPITAL HOSPITAL W/LEAST 12 LDS TRCG ONLY W/O I&R COMPREHEN 50302 [facility] SIVE 5 Y Y [facility]PITAL PANEL ANTINUCLE 11214 [facility] AR 5 Y Y [facility] [place] [address] [facility] BLOOD/URI 5 Y Y C ACID HOSPITAL HOSPITAL SEDIMENTA 26358 [facility] TION RATE 5 Y Y RBC HOSPITAL HOSPITAL AUTOMATED THROMBOPL 05634 [facility] ASTIN 5 Y Y TIME HOSPITAL HOSPITAL PARTIAL PLASMA/WH OLE BLOOD COLLECTIO 43825 [facility] N VENOUS 5 Y Y BLOOD HOSPITAL [facility] VENIPUNCT URE C-REACTIV 40053 [facility] E PROTEIN 5 Y Y HOSPITAL HOSPITAL PROTHROMB 97364 [facility] IN TIME 5 Y Y HOSPITAL HOSPITAL ECG 63760 BARRY MERLINE CHI ROUTINE 5 MEDICAL ECG SERV W/LEAST FOUNDATIO 12 LDS N I&[place] [address] [place] RASLAU MAXILLOFA 5 MEDICAL FLA CIAL W/O SERV CONTRAST FOUNDATIO MATERIAL N RADEX 21875 [facility] SPINE 4 MEDICAL EDER LUMBOSACR IMAGING AL ASS MINIMUM 4 [place] [address] SERENA LYONS THYROID 4 MEM [facility] STIMULATI INC INC NG HORMONE TSH FINE 89009 [place] [facility] NEEDLE 4 MEDICAL L ASPIRATIO SERV N [place] [address] [place] [facility] GUIDANCE 4 MEDICAL L NEEDLE SERV PLACEMENT FOUNDATIO IMG S&I N CYTP EVAL 74289 DEREK MANUEL FINE 4 Y OF OLGA LIDIA NEEDLE HEATHER ASPIRATE HOSPI INTERP & REPORT US SOFT 89319 [place] [facility] TISSUE 4 MEDICAL L HEAD & SERV NECK REAL FOUNDATIO TIME N IMGE DOCM CT THORAX 17871 HEATHER BEINEKE W/O 4 MEDICAL OLGA LIDIA CONTRAST IMAGING MATERIAL ASS RADEX 44684 [facility]ATHER LIZA HAND 4 MEDICAL EDER MINIMUM 3 IMAGING VIEWS ASS US SOFT 67350 S[facility] TISSUE 4 [facility] HEAD & INC INC NECK REAL TIME IMGE DOCM CYTP EVAL 08079 P&[facility] LABSMELISSA FINE 4 LLC ODALIS NEEDLE ASPIRATE INTERP & RE[place] [address] P&C LABSMELISSA SURG 4 LLC ODALIS PATHOLOGY GROSS&[place] [address] SERENA LYONS GUIDANCE 4 [facility] NEEDLE INC INC PLACEMENT IMG S&I FINE 69974 SERENA LYONS NEEDLE 4 [facility] ASPIRATIO INC INC N WITH IMAGING GUIDANCE SEDIMENTA 42300 SREE[facility] LY[facility] TIPOP RATE 4 MEM HOS[facility] RBC INC INC NON-AUTOM ATED COLLECTIO 11519 S[facility] L[facility]ONS N VENOUS 4 [facility] BLOOD INC INC VENIPUNCT URE COMPREHEN 23338 [facility] SIVE 4 [facility] [address] SERENA LYONS BLOOD/URI 4 [facility] C ACID INC INC RHEUMATOI 04120 S[facility] L[facility] D FACTOR 4 [facility] QUANTITAT INC INC [place] URNLS DIP 09183 [facility] 4 [facility] STICK/TAB INC INC LET REAGENT AUTO MICROSCOP Y BLOOD 56446 [facility] COUNT 4 [facility] COMPLETE INC INC AUTO&AUTO DIFRNTL WBC PROSTATE G0103 [facility] CANCER 4 [facility] SCREENING INC INC ; PSA TEST SPMTRY 88163 JOHNNIE BLAIR W/VC 4 MJ MJ EXPIRATOR Y STEPHEN W/WO MXML VOL VNTJ ECG 97570 JOHNNIE BLAIR ROUTINE 4 MJ MJ ECG W/LEAST 12 LDS W/I&R RADEX 94992 [facility] HAND 4 [facility] MINIMUM 3 INC INC VIEWS NONEMERG A0120 FEDERATED FEDERATED TRNSPRT: 4 TRANS MINI-BUS TRANSPORT SERVBLUEG MTN ATION SER SIM AREA/OTH SYS PET 04279 BARRY SHOEMAKER PAR IMAGING [address] SERV ATTENUATI FOUNDATIO ON SKULL BASE MID-THIGH FLUORODEO A9552 [facility] XYGLUCOSE 4 Y Y F-18 [facility] DX UP TO 45 MCI RADEX 75307 [facility] BEINEKE HAND 4 MEDICAL OLGA LIDIA MINIMUM 3 IMAGING VIEWS ASS CAST Q4022 [facility] SUPPLIES 4 PHYSICIAN MARITZA SHORT ARM S GROUP SPLINT ADULT FIBERGLAS S CLTX [address] [facility] METACARPA 4 PHYSICIAN MARITZA L FX W/O S GROUP MANIPULAT ION EACH BONE RADEX 89170 [facility] LIZA HAND 4 MEDICAL EDER MINIMUM 3 IMAGING VIEWS ASS APPLICATI 10195 [facility] ALFARIS ON SHORT 4 [place] MOH ARM EMERGENCY SPLINT PHYS FOREARM-H AND STATIC CT THORAX 08674 [facility] 4 AYAH W/CONTRAS RADIOLOGY T ASSOCIAT MATERIAL RADEX 76489 [facility] RIBS 4 AYAH UNILATERA RADIOLOGY L 2 VIEWS ASSOCIAT RADIOLOGI 88611 [facility] C EXAM 4 AYAH CHEST 2 RADIOLOGY VIEWS ASSOCIAT FRONTAL&L ATERAL Encounters Encounter Start End Date Code Location Performer Type Date [facility] - 7 7 [facility] OUTPATIEN E T HOSPITALS OFFICE 13811 OUTPATI 7 7 [facility] T VISIT 5 E MINUTES [facility]OSPITALS OFFICE 00670 OUTPATIEN 7 7 [facility] T VISIT 5 E MINUTES HOSPITALS OFFICE 57631 [facility]GO OUTPATIEN 7 7 MEDICAL T VISIT SERV 25 FOUNDATIO MINUTES N [facility] - [facility] OUTPATI[facility]ITALS OFFICE 25112 [place] [facility] 7 7 MEDICAL ION SERV NEW/ESTAB FOUNDATIO PATIENT N 60 MIN OFFICE 36703 [facility] OUTPATIEN 7 7 MEDICAL T VISIT SERV 25 FOUNDATIO MINUTES N OFFICE 88862 [facility] OUTPATIEN 7 7 HEALTH T VISIT SOLUTIONS 25 IN MINUTES [facility] - [facility] OUTPATIEN E T [facility]ITALS OFFICE 51784 [facility] T VIS[facility] 5 E MINUTES [facility] OFFICE 36856 [facility] V[facility] SERV 25 FOUNDATIO MINUTES [facility] - 7 7 [facility] OUTPATIEN E [facility]OSPITALS OFFICE 14249 [place] [facility] 7 7 MEDICAL T VISIT SERV 25 FOUNDATIO MINUTES N OFFICE 05143 [facility] 7 7 HEALTH[facility] T VISIT 5 E MINUTES [facility] - 7 7 [facility] OUTPATIEN E HOSPITALS OFFICE 29573 [facility] 7 7 HEALTH T VISIT SOLUTIONS 25 IN MINUTES OFFICE 32684 [facility] 6 6 HEALTH T VISIT SOLUTIONS 15 IN MINUTES OFFICE 72432 B[facility]Y AR[place] [facility] 6 6 MEDICAL T VISIT SERV 25 FOUNDATIO MINUTES [facility] - 6 6 [facility] OUTPATIEN E [facility]OSPITALS OFF[facility] 75094 [facility] 6 6 Y T VISIT 5 HOSPITAL MINUTES OFFICE 04936 [facility] 6 6 MEDICAL TIGIST ION SERV NEW/ESTAB FOUNDATIO PATIENT N 60 MIN [facility] 33892 [facility] 6 6 COUNTY NAN T VISIT URGENT 15 TREAT [facility] SERENA - 6 6 MEM H[facility] OUTPATIEN [facility] T OFFICE 63490 [facility] 6 6 PHYSICIAN JAM T VISIT S GROUP 10 MINUTES OFFICE 91329 [facility] OUTPATI[facility] 6 6 PHYSICIAN JAM T VISIT S GROUP 15 MINUTES [facility] SERENA - 6 6 [facility] OUTPATIEN [facility] T OFFICE 93258 TITA VALENZUELA OUTPATIEN 6 6 [facility] T VISIT URGENT 25 TREAT MINUTES [facility] SERENA - 6 6 [facility] OUTPATIEN [facility] SERENA - 6 6 [facility] OUTPATIEN [facility] SERENA - 6 6 [facility] OUTPATIEN [facility] T EMERGENCY 87466 SERENA 5 5 [facility] T VISIT [facility]IGH/URGE NT SEVERITY [facility] SERENA - 5 5 [facility] OUTPATIEN [facility] T OFFICE 53395 [facility] 5 Y T VISIT [facility] UNIVERSIT - 5 5 Y [facility] T OFFICE 04883 [place] [facility] [place] OUTPATIEN 5 5 MEDICAL T VISIT SERV 25 FOUNDATIO MINUTES N OFFICE 60492 [place] [facility] [place] OUTPATIEN 5 5 MEDICAL T VISIT SERV 25 FOUNDATIO MINUTES N [facility] UNIVERSIT - 5 5 Y [facility] T OFFICE 53411 [place] [facility] CONSULT[facility] 5 5 MEDICAL ION SERV NEW/ESTAB FOUNDATIO PATIENT N 40 MIN OFFICE 09517 JOHNNIE BLAIR OUTPATIEN 4 4 MJ MJ T VISIT 15 MINUTES [facility] SERENA - 4 4 [facility] H[facility] OUTPATIEN [facility] HOSPITAL UNIVERSIT - 4 4 Y [facility] T OFFICE 58578 JOHNNIE BLAIR OUTPATIEN 4 4 MJ MJ T VISIT 25 MINUTES [facility] SERENA - 4 4 [facility] OUTPATIEN [facility] T OFFICE 74658 JOHNNIE BLAIR OUTPATIEN 4 4 MJ BARKER T VISIT 15 MINUTES [facility]OSPITAL SERENA - [address] [facility] OUTPATIEN [facility] OFFICE 03424 BARRY SHARP CON[facility]ULTAT 4 4 MEDICAL L ION SERV NEW/ESTAB FOUNDATIO PATIENT 60 MIN HOSPITAL SERENA - [address] [facility] OUTPATIEN [facility] SERENA - [address] [facility] OUTPATIEN [facility] PERIODIC 37882 JOHNNIE BLAIR PREVENTIV 4 4 MJ BARKER E MED EST PATIENT 40-64YRS OFFICE [address] [facility] OUT[facility] 4 4 PHYSICIAN MARITZA T VISIT S GROUP 15 MINUTES [facility] SERENA - [address] [facility] OUTPATIEN [facility] UNIVERSIT - 4 4 Y [facility] SERENA - [address] [facility] OUTPATI[facility] EMERGENCY 85531 [facility] [address] [facility] EMERGENCY T VISIT PHYS MODERATE SEVERITY OFFICE 90752 TITA VALENZUELA OUTPATIEN 4 4 [facility]
--- OUTSIDE RECORDS SUMMARY | 2017-02-04 14:19 | External Medical Summary Rpt | CCD ---
Author Author , ROSALBA Organization ROSALBA Address Unknown Phone [email or web address] Care Team Providers Care Exercise Instructor Name Role Phone LOLY-OMER AHM, Unavailable Unavailable [...] [facility] BECKETT, BECKETT Unavailable Unavailable [facility] Unavailable Unavailable INC, [facility] Un[facility] Un[facility] P, [facility] [place] AYAH, SOLIS Unavailable Unavailable AYAH [facility], Unavailable Unavailable [facility] BIANCA, BIANCA Unavailable Unavailable BIANCA NAN, BIANCA Unavailable Unavailable NAN [facility] Un[facility], [facility], MERLINE Unavailable Unavailable [facility] Un[facility] LARRY JR DWI, LARRY Unavailable Unavailable JR DWI JOHNNIE MJ, JOHNNIE Unavailable Unavailable MJ JOHNNIE MJ, JOHNNIE Unavailable Unavailable MJ ANGIE, ANGIE Unavailable Unavailable ANGIE CON, ANGIE CON Unavailable Unavailable LOC[facility] DALE ODAL[facility], Unavailable Unavailable [facility] Unavailable [facility]available [facility] Unavailable Unavailable AMBULANCE SE, [facility] Unavailable Unavailable AMBULANCE , [facility] AM[facility] SE [facility] Unavailable Unavailable HEALTH, [facility] HEALTH [facility] Unavailable Unavailable URGENT TREAT, [facility] PETTEY JAM, PETTEY Unavailable Unavailable JAM RASLAU FLA, RASLAU Unavailable Unavailable FLA SHARP L, SHARP Unavailable Unavailable L KALEB DUGGAN, Unavailable Unavailable KALEB DUGGAN SAHARA PAR, SAHARA PAR Unavailable Unavailable [facility] Un[facility] Unavailable [facility], [facility] Unavailable [facility], [facility], Unavailable Unavailable [facility] Unavailable [facility] HARTLEY TIGIST, HARTLEY Unavailable Unavailable TIGIST CHARISSASHARAN, Unavailable Unavailable LEYLAJAY JAYDONNADELFINA Purpose Continuity of Care Document - 08-09-2013 through 2016 Problems Code Diagnosis DOS Provider Status [id number] ENCOUNTER 12-24-2016 [facility] FOLLOW SURGERY CIRC SYS [id number] PRESENCE 12-24-2016 [facility] IMPLANTABLE HOSPITALS CARDIAC DEFIBRILLAT OR I255 ISCHEMIC 12-17-2016 [facility] CARDIOMYOPA [facility] THY [facility] I517 CARDIOMEGAL 12-17-2016 [place] [facility] Y [facility] E785 HYPERLIPIDE 12-07-2016 [facility] UNSPECIFIED HOSPITALS I2510 ASHD KIPNUK 12-07-2016 CORONARY HEALTHCARE ARTERY W/O HOSPITALS ANGINA PECTORIS M5430 SCIATICA 12-07-2016 UNSPECIFIED [facility]ALTHCARE SIDE HOSPITALS R001 BRADYCARDIA 11-02-2016 [facility]PEC[facility] R55 SYNCOPE AND 11-02-2016 [place] [facility] COLLAPSE SERV [facility] R69 ILLNESS 11-02-2016 [facility] UNSPECIFIED TRANSPORTAT ION SER R9431 ABNORMAL 11-02-2016 [facility] ELECTROCARD SERV IOGRAM FOUND[facility] R07745 PERSONAL 11-02-2016 [place] [facility] H[facility] OF SERV NICOTINE FOUNDATION DEPENDENCE J0100 ACUTE 09-24-2016 [facility] SINUSITIS SOLUTIONS UNSPECIFIED IN I252 OLD 07-20-2016 [facility] INFARCTION HOSPITALS I5020 UNSPECIFIED 07-20-2016 [facility] SYSTOLIC SERV CONGESTIVE [facility]ATION HEART FAILURE R42 DIZZINESS 07-20-2016 [facility] GIDDINESS HOSPITALS Z720 TOBACCO USE 07-20-2016 HEALTHCARE HOSPITALS Z955 PRESENCE OF 07-20-2016 CORONARY HEALTHCARE ANGIOPLASTY HOSPITALS IMPLANT & GRAFT J208 ACUTE 06-23-2016 [facility] BRONCHITIS [facility]ALTH DUE TO SOLUTIONS OTHER SPEC IN ORGANISMS R05 COUGH 06-23-2016 [facility] SOLUTIONS IN I2129 ST 04-22-2016 [facility] E[facility]ATION [facility] MYOCARDIAL SOLUTIONS INFARCT IN [facility] SITES I9589 OTHER 04-22-2016 [facility] HYPOTENSION HEALTH SOLUTIONS IN R0789 OTHER CHEST 04-22-2016 [facility] PAIN HEALTH SOLUTIONS IN R0600 DYSPNEA 04-13-2016 UNSPECIFIED HEALTHCARE HOSPITALS I2119 ST 03-29-2016 [facility] PR INVOLV FOUNDATION OTH CORONARY ART INF WALL I493 VENTRICULAR 03-29-2016 [facility] PREMATURE SERV DEPOLARIZAT FOUNDATION ION I499 CARDIAC 03-29-2016 [facility] ARRHYTHMIA SERV UNSPECIFIED FOUNDATION I2111 ST 03-27-2016 [facility] MYOCARDIAL FOUND[facility] INFARCTION INVOLVING RCA I213 ST 03-27-2016 [facility] MYOCARDIAL [facility] INFARCTION UNS SITE I2582 CHRONIC 03-27-2016 [facility] TOTAL [facility] OCCLUSION FOUNDATION OF CORONARY ARTERY I4581 LONG QT 03-27-2016 [facility] SYNDROME SERV [facility] I472 VENTRICULAR 03-27-2016 [facility] TACHYCARDIA FOUNDATION I498 OTHER 03-27-2016 [facility] SPECIFIED SERV CARDIAC FOUNDATION ARRHYTHMIAS I959 HYPOTENSION 03-27-2016 [facility] UNSPECIFIED AMBULANCE SE R0602 SHORTNESS 03-27-2016 [facility] OF BREATH SERV FOUNDATION Z743 NEED FOR 03-27-2016 AIR METHODS CONTINUOUS [facility] SUPERVISION E041 NONTOXIC 03-18-2016 [facility] THYROID NODULE J449 CHRONIC 03-18-2016 [place] [facility] PULMONARY DISEASE UNS K219 GASTRO-ESOP 03-18-2016 [facility] DISEASE WITHOUT ESOPHAGITIS R4020 UNSPECIFIED 03-18-2016 [place] [facility] COMA SERV [facility] R918 OTHER 03-18-2016 [facility] ABNORMAL FINDING OF LUNG FIELD S69772 OTHER LONG 03-18-[address] [facility] CURRENT DRUG THERAPY Z833 FAMILY 03-18-2016 [place] HISTORY OF HOSPITAL DIABETES MELLITUS C32914 PERSONAL 03-18-2016 [place] [facility] TRAUMATIC BRAIN INJURY M5431 SCIATICA 02-21-2016 [facility] SIDE [facility] URGENT TREAT G48306 PAIN IN 01-17-2016 [facility] RIGHT [facility]BOW MEDICAL IMAGING ASS M7022 OLECRANON 01-17-2016 [facility] PHYSICIANS LEFT ELBOW GROUP B10993 PAIN IN 12-20-2015 [facility] LEFT MEDICAL FINGERS IMAGING ASS [id number] PAIN IN 12-20-2015 [facility] UNSPECIFIED [facility] FINGERS INC M7021 OLECRANON 12-17-2015 [facility] RIGHT ELBOW URGENT TREAT G544 LUMBOSACRAL 09-13-2015 [facility] ROOT [facility] DISORDERS INC NEC M545 LOW BACK 09-13-2015 [facility] PAIN [facility] INC E782 MIXED 09-05-2015 [facility] HYPERLIPIDE [facility] J301 ALLERGIC 09-05-2015 [facility] RHINITIS [facility] DUE TO URGENT POLLEN TREAT J441 CHRONIC 09-05-2015 [facility] OBSTRUCTIVE [facility] PULMONARY URGENT DZ TREAT W/EXACERBAT ION N401 BENIGN 09-05-2015 [facility] PROSTATIC [facility] HYPERPLASIA URGENT LW URINARY TREAT TRACT SX 2768 HYPOPOTASSE 09-28-2014 [facility] P 66016 RESTLESS 09-28-2014 [facility] SYNDROME INC 4739 UNSPECIFIED 09-28-2014 [facility] SINUSITIS [facility] INC 496 CHRONIC 09-28-2014 [facility] AIRW[facility] MEDICAL OBSTRUCTION IMAGING ASS NEC 5849 ACUTE 09-28-2014 [facility] P UNSPECIFIED 63503 HYPERTROPHY 09-28-2014 [facility] W/O UR OBST INC & OTH LUTS 7802 SYNCOPE AND 09-28-2014 [facility] COLLAPSE [facility] AMBULANCE SE 7804 DIZZINESS 09-28-2014 [facility] P 7808 GENERALIZED 09-28-2014 [facility] [place] [address] SHORTNESS 09-28-2014 [facility] OF BREATH MEDICAL IMAGING ASS 90142 NAUSEA WITH 09-28-2014 [facility] VOMITING [facility] [place] [address] OTHER 09-28-2014 [facility] NONSPECIFIC MEDICAL ABNORMAL IMAGING ASS FINDING OF LUNG FIELD 470 DEVIATED 08-31-2014 [facility] NAS[facility] SERV SEPTUM FOUNDATION 4780 HYPERTROPHY 08-31-2014 [facility] OF NASAL SERV TURBINATES FOUNDATION 25324 ESOPHAGEAL 08-31-2014 [facility] V7284 UNSPECIFIED 08-31-2014 [facility] PRE-OPERATI VE EXAMINATION 11686 OTHER 06-26-2014 [facility] NASAL CAVITY AND SINUSES 5239 UNSPECIFIED 06-26-2014 [facility] AND PERIODONTAL DISEASE 7099 UNSPECIFIED 06-26-2014 [facility] SKIN&SUBCUT ANEOUS TISSUE 7840 HEADACHE 06-26-2014 [facility] 4610 ACUTE 04-03-2014 JOHNNIETOMMIE BARKER MAXILLARY SINUSITIS 4611 ACUTE 04-03-2014 JOHNNIETOMMIE BARKER FRONTAL SINUSITIS 2410 NONTOXIC 03-28-2014 [facility] UNINODULAR [facility] GOITER INC 7213 LUMBOSACRAL 03-28-2014 [facility] SPONDYLOSIS IMAGING ASS WITHOUT MYELOPATHY 2374 NEOPLASM 03-15-2014 [place] [facility] UNCERTAIN SERV BHV [facility]OUNDATION OTH&UNSPEC ENDOCRN GLANDS 2409 GOITER, 03-15-2014 [place] [facility] 4779 ALLERGIC 02-26-2014 JOHNNIE BARKER RHINITIS CAUSE UNSPECIFIED 37465 UNSPECIFIED 02-26-2014 JOHNNIE BARKER ARTHROPATHY MULTIPLE SITES 7242 LUMBAGO 02-26-2014 JOHNNIE BARKER 4928 OTHER 02-13-2014 [facility] EMPHYSEMA [facility] INC 88029 OBSTRUCTIVE 01-16-2014 JOHNNIE BARKER CHRONIC BRONCHITIS WITHOUT EXACERBAT V5419 AFTERCARE 01-04-2014 [facility] HEALING MEDICAL TRAUMATIC IMAGING ASS FRACTURE OTHER BONE 46078 PAIN IN 11-22-2013 [facility] JOINT, SITE [facility] INC UNSPECIFIED 47337 URINARY 11-22-2013 [facility] FREQUENCY [facility] INC V700 ROUTINE 11-14-2013 JOHNNIE BARKER GENERAL MEDICAL EXAM@HEALTH CARE FACL 05413 THYROTOX 10-25-2013 [place] [facility] W/O SERV GOITER/OTH FOUNDATIO CAUSE W/O CRISIS 17646 OTHER 10-25-2013 [place] [facility] DISEASES OF SERV LUNG NOT FOUNDATIO ELSEWHERE CLASSIFIED 34415 10-25-2013 [facility] TRANSPORTAT ION SER V711 OBSERVATION 10-25-2013 [facility] SUSPECTED MALIGNANT NEOPLASM 99234 CLOSED 10-11-2013 [facility] FRACTURE OF PHYSICIANS SHAFT OF GROUP METACARPAL BONE 7822 LOCALIZED 10-07-2013 [facility] SUPERFICIAL MEDICAL SWELLING IMAGING ASS [place] LUMP 52744 CLOSED 10-07-2013 [facility] FRACTURE N EMERGENCY METACARPAL PHYS BONE SITE UNSPECIFIED E9289 UNSPECIFIED 10-07-2013 [facility] 93110 CLOSED 08-21-2013 [facility] FRACTURE OF RADIOLOGY ONE RIB ASSOCIAT 11235 SOLITARY 08-14-2013 [facility] PULMONARY [facility] NODULE [facility] 8483 SPRAIN AND 08-14-2013 [facility] STRAIN OF [facility] RIBS [facility] 81159 CHEST PAIN 08-09-2013 [facility] UNSPECIFIED RADIOLOGY ASSOCIAT 9599 INJURY 08-09-[facility] AND RADIOLOGY UNSPECIFIED ASSOCIAT UNSPECIFIED SITE [...] 77 LE ZA 61 17 17 71 UT 5 37 IN UG E S 10 [...] 88 -1 -0 .0 00 RL ti UT 40 00 IS ve OL 82 20 [...] 77 LE ZA 61 17 [address] ABBASI UG E S [...] 88 -1 -0 .0 00 RL ti UT 40 4- 8- 00 00 IS ve [...] 88 -2 -2 .0 00 RL ti UT 40 8- 5- 00 00 IS ve [...] 77 LE ZA 61 17 [address] IN UG E S [...] 77 LE ZA 61 17 [address] IN UG E S [...] NO 00 2- - 00 IS ve UT 51 20 20 77 LE IL 30 17 17 68 5 3 09 UG MG S TA BL ET LI 68 06 07 30 30 00 CA Ac SI 18 -1 -1 .0 00 RL ti NO 00 7- 4- 00 00 IS ve UT 51 20 20 77 LE IL 20 [...] 00 5- 3- 00 00 IS ve UT 51 20 20 77 LE IL 20 17 [address] 2[address] UG 5 S MG TA BL ET CY 69 05 06 30 30 00 CA Ac CL 09 -2 -2 .0 00 RL ti OB 70 5- 3- 00 00 IS ve EN 84 20 20 77 LE ZA 61 17 [address] IN UG E S [...] 88 -3 -2 .0 00 RL ti UT 40 1- 3- 00 00 IS ve [...] 88 -0 -2 .0 00 RL ti UT 40 1- 6- 00 IS ve OL 82 20 20 77 LE OL 61 17 [address] WALKER UG CC S ER 50 MG TA B LI 68 04 05 30 30 00 CA Ac SI 18 -2 -1 .0 00 RL ti NO 00 00 IS ve UT 51 20 20 77 LE IL 20 17 [address] 2[address] UG 5 S MG TA BL ET CY 69 04 05 30 30 00 CA Ac CL 09 -2 -1 .0 00 RL ti OB 70 6 9- 00 IS ve EN 84 20 20 77 LE ZA 61 17 [address] IN UG E S [...] 37 -0 -2 .0 00 RL ti UT 80 3- 8- 00 00 IS ve [...] 76 LE ZA 92 17 [address] IN UG E S 10 MG TA BL ET LI 68 03 04 30 30 00 CA Ac SI 18 -2 -2 .0 00 RL ti NO 00 7- 1- 00 00 IS ve UT 51 20 20 77 LE IL 20 [...] 76 LE ZA 93 17 [address] IN UG E S [...] 03 -2 -2 .0 00 RL ti UT 70 7- 4- 00 IS ve OL 83 20 20 76 LE OL 01 17 [address] WALKER UG CC S ER 25 MG TA B CY 00 02 30 30 00 CA Ac CL 60 -3 -2 .0 00 RL ti OB 33 00 IS ve EN 07 20 20 76 LE ZA 93 17 17 47 UT 2 51 IN UG E S 10 [...] 03 -1 -1 .0 00 RL ti UT 70 8- 0- 00 00 IS ve [...] 76 LE ZA 11 17 [address] ABBASI UG E S [...] 00 2- 0- 00 00 IS ve UT 51 20 20 76 LE IL 30 16 [address] UG MG S TA BL ET ME 00 12 01 18 90 00 CA Ac TO 37 -1 -1 0. 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 017 pg/mL ed SerPl-m 09:45 Cnc Procedures Procedure DOS Code Location Performer Comment RADIOLOGI 39962 [place] ANGIE C 7 MEDICAL EXAMINATI SERV ON CHEST FOUNDATIO SINGLE N VIEW FRONTAL INSJ/RPLC 58439 [place] ELAYI MT PERM 7 MEDICAL DFB SERV W/TRNSVNS FOUNDATIO LDS N 1/DUAL CHMBR NONEMERG A0120 FEDERATED FEDERATED TRNSPRT: 7 MINI-BUS TRANSPORT TRANSPORT MTN ATION SER ATION SER AREA/OTH SYS ECG 36898 [place] MERLINE ROUTINE 7 MEDICAL ECG SERV W/LEAST FOUNDATIO 12 LDS N I&R ONLY NONEMERG A0120 FEDERATED FEDERATED TRNSPRT: 7 MINI-BUS TRANSPORT TRANSPORT MTN ATION SER ATION SER AREA/OTH SYS NONEMERG A0120 FEDERATED FEDERATED TRNSPRT: 7 MINI-BUS TRANSPORT TRANSPORT MTN ATION SER ATION SER AREA/OTH SYS CARDIAC 57966 [place] MAGGIEGUROVSK MRI W/WO 7 MEDICAL AYA CONTRAST SERV & FURTHER FOUNDATIO SEQ N INJECTION 04-05-201 A9585 [place] UK 7 HEALTHCAR HEALTHCAR GADOBUTRO E E L 0.1 ML [facility] CARDIAC 49861 BARRY WHITESIDE MRI FOR 7 MEDICAL AYA VELOCITY SERV FLOW FOUNDATIO MAPPING N NONINVASI 83742 [place] VE 7 HEALTHCAR HEALTHCAR EAR/PULSE E E OXIMETRY [facility] SINGLE DETER ECG 17791 BARR[facility] MERLINE ROUTINE 6 MEDICAL ECG SERV W/LEAST FOUNDATIO 12 LDS N I&R ONLY NATRIURET 04952 [place] IC 6 HEALTHCAR HEALTHCAR PEPTIDE [facility] [address] [place] MAGNESIUM 6 HEALTHCAR HEALTHCAR E E [facility] COLLECTIO 11729 [place] N VENOUS 6 HEALTHCAR HEALTHCAR BLOOD E E VENIPUNCT [facility] URE BASIC 26260 [facility] METABOLIC 6 HEALTHCAR HEALTHCAR PANEL E E CALCIUM [facility] TOTAL ECG 67268 BARRY BECKETT ROUTINE 6 MEDICAL ECG SERV W/LEAST FOUNDATIO 12 LDS N I&R ONLY ECG 64904 BARRY RICK CHI ROUTINE 6 MEDICAL ECG SERV W/LEAST FOUNDATIO 12 LDS N I&R ONLY PRQ 08081 BARRY LOLY-LAT TRLUML 6 MEDICAL IF AHM CORONRY SERV TOT FOUNDATIO OCCLUS N REVASC PR ONE VSL AMB A0427 [facility] SERVICE 6 [facility] ALS AMBULANCE AMBULANCE EMERGENCY SE SE TRANSPORT LEVEL 1 RADIOLOGI 50404 BARRY ANGIE CON C 6 MEDICAL EXAMINATI SERV ON CHEST FOUNDATIO SINGLE N VIEW FRONTAL GROUND A0425 [facility] MILEAGE 6 [facility] PER AMBULANCE AMBULANCE STATUTE SE SE MILE AMB A0431 AIR AIR SERVICE 6 METHODS METHODS CONVNTION [facility] AIR SRVC TRANSPORT [address] HEMOGLOBI 53593 [facility] N 6 Y Y GLYCOSYLA [facility] DAWIT A1C COLLECTIO 26986 [facility] UNIVERSIT N VENOUS 6 Y Y BLOOD [facility] VENIPUNCT URE ORGANIC 44242 [facility] UNIVERSIT ACID 1 6 Y Y [facility] [place] ARTHROCEN 52744 [facility] PETTEY TESIS 6 PHYSICIAN MARITZA ASPIR&/IN S GROUP J INTERM JT/BURS W/O US INJ J0702 [facility] PETTEY BETAMETHA 6 PHYSICIAN MARITZA SONE S GROUP ACETATE & PHOSPHATE 3 MG NONEMERG A0120 FEDERATED FEDERATED TRNSPRT: 6 MINI-BUS TRANSPORT TRANSPORT MTN [facility]OT SYS RADEX 40749 [facility] HENDERSON ALL ELBOW 6 MEDICAL COMPLETE IMAGING MINIMUM 3 ASS VIEWS RADEX 53260 [facility] HENDERSON ALL FINGR 6 MEDICAL MINIMUM 2 IMAGING VIEWS ASS ELECTROEN 93299 [facility] CEPHALOGR 6 [facility] AM W/REC INC INC AWAKE&CONNOR WSY THERAPEUT 31079 [facility] L[facility]ONS IC PX 1/> 6 [facility] AREAS INC INC EACH 15 MIN EXERCISES THERAPEUT 33508 [facility] LYONS IC PX 1/> 6 [facility] AREAS INC INC EACH 15 MIN EXERCISES APPL 80414 [facility] MODALITY 6 [facility]OS[facility] 1/> AREAS INC INC ULTRASOUN D EA 15 MIN PHYSICAL 81503 [facility] THERAPY 6 [facility] EVALUATIO INC INC N NONEMERG A0120 FEDERATED FEDERATED TRNSPRT: 6 MINI-BUS TRANSPORT TRANSPORT MTN [place] [address] [facility] TANJA HEAD/BRAI 6 MEDICAL OLGA LIDIA N W/O IMAGING CONTRAST ASS MATERIAL HANDLG&/O 65351 TITA VALENZUELA R CONVEY 6 [facility] SPEC URGENT FOR TR TREAT OFFICE TO LAB COLLECTIO 30848 TITA Hyatt VENOUS 6 [facility] BLOOD URGENT VENIPUNCT TREAT URE COLLECTIO 25064 [facility] N VENOUS 5 [facility] BLOOD INC INC VENIPUNCT URE BASIC 01102 S[facility] METABOLIC 5 [facility] PANEL INC INC [facility] G0378 S[facility] OBSERVATI 5 [facility] ON INC INC SERVICE [facility] G0378 S[facility]ERENA OBSERVATI 5 [facility] ON INC INC SERVICE PER HOUR RADIOLOGI 06796 HEATHER HENDERSON ALL C EXAM 5 MEDICAL CHEST 2 IMAGING VIEWS ASS FRONTAL&L ATERAL ECG 01849 [facility] JUAREZ JR ROUTINE 5 [facility] W/LEAST P 12 LDS I&[place] [address] [facility] LYNOS INFUSION 5 [facility] THERAPY/P INC INC ROPHYLAXI S /DX 1ST TO 1 HR CREATINE 16055 [facility] KINASE MB 5 [facility] FRACTION INC INC ONLY COMPREHEN 96768 S[facility] SIVE 5 [facility] METABOLIC INC INC PANEL GROUND A0425 [facility] MILEAGE 5 [facility] PER AMBULANCE AMBULANCE STATUTE SE SE MILE AMBULANCE A0429 [facility] SERVICE 5 [facility] BL AMBULANCE AMBULANCE EMERGENCY SE SE TRANSPORT TOBACCO 03134 [facility] L[facility]ONS USE 5 [facility] CESSATION INC INC INTERMEDI ATE 3-10 MINUTES AMB A0422 [facility] OXYGEN&O2 5 [facility] SUPPLIES AMBULANCE AMBULANCE LIFE SE SE SUSTAININ G SITUATION RADEX 46010 HEATHER HENDERSON ALL ABDOMEN 5 MEDICAL COMPL IMAGING W/DCBTS&/ ASS ERC VIEWS ECG 06820 [facility] L[facility]ONS ROUTINE 5 [facility] ECG INC INC W/LEAST 12 LDS TRCG ONLY W/O I&[place] [address] [facility] TROPONIN 5 [facility] QUANTITAT INC INC [place] BLOOD 36015 [facility] COUNT 5 [facility] COMPLETE INC INC AUTO&AUTO DIFRNTL WBC CREATINE 79384 [facility] KINASE 5 [facility] H[facility]OS[facility] TOTAL INC INC RHEUMATOI 77783 [facility] D FACTOR Y Y [facility] OH HEPATITIS 64082 [facility] UNIVERSIT C 5 Y Y [facility] B[facility] 51448 UN[facility]IT UNIVERSIT COUNT [address] [facility] AUTOMATED ECG [address] [facility] [place] ROUTINE 5 Y Y ECG HOSPITAL HOSPITAL W/LEAST 12 LDS TRCG ONLY W/O I&R COMPREHEN [address] [facility] SIVE 5 Y Y METABOLIC HOSPITAL HOSPITAL PANEL ANTINUCLE [address] [facility] [place] AR 5 Y Y ANTIBODIE [facility] [address] [facility] BLOOD/URI 5 Y Y C ACID HOSPITAL HOSPITAL SEDIMENTA [address] [facility] TION RATE 5 Y Y RBC HOSPITAL HOSPITAL AUTOMATED THROMBOPL [address] [facility] ASTIN 5 Y Y TIME HOSPITAL HOSPITAL PARTIAL PLASMA/WH OLE BLOOD COLLECTIO [address] [facility] N VENOUS 5 Y Y BLOOD [facility] VENIPUNCT URE C-REACTIV [address] [facility] E PROTEIN 5 Y Y HOSPITAL HOSPITAL PROTHROMB [address] [facility] IN TIME 5 Y Y HOSPITAL HOSPITAL ECG 04304 [facility]ARR[facility]LINE [facility] ROUTINE 5 MEDICAL ECG SERV W/LEAST FOUNDATIO 12 LDS N I&[place] [address] [place] RASLAU MAXILLOFA 5 MEDICAL FLA CIAL W/O SERV CONTRAST FOUNDATIO MATERIAL N RADEX 28078 [facility] SPINE 4 MEDICAL EDER LUMBOSACR IMAGING AL ASS MINIM[place] 4 [place] [address] S[facility] THYROID 4 MEM HOS[facility] HOS[facility] STIMULATI INC INC NG HORMONE TSH FINE 55991 [place] SHARP NEEDLE 4 MEDICAL L ASPIRATIO SERV [place] [address] [place] SHARP GUIDANCE 4 MEDICAL L NEEDLE SERV PLACEMENT FOUNDATIO IMG S&I N CYTP EVAL 64345 DEREK MANUEL FINE 4 Y OF OLGA LIDIA NEEDLE HEATHER ASPIRATE HOSPI INTERP & REPORT US SOFT 66268 [place] SHARP TISSUE 4 MEDICAL L HEAD & SERV NECK REAL FOUNDATIO TIME N IMGE DOCM CT THORAX 66071 HEATHER BEINEKE W/O 4 MEDICAL OLGA LIDIA CONTRAST IMAGING MATERIAL ASS RADEX 40925 HEATHER LIZA HAND 4 MEDICAL EDER MINIMUM 3 IMAGING VIEWS ASS US SOFT 07498 [facility] TISSUE 4 [facility] HEAD & INC INC NECK REAL TIME IMGE DOCM CYTP EVAL 00465 P&[facility] LABSMELIS[facility] 4 [facility] ODALIS NEEDLE ASPIRATE INTERP & RE[place] [address] P&C LABSMELISSA SURG 4 LLC ODALIS PATHOLOGY GROSS&[place] [address] [facility] GUIDANCE 4 [facility] NEEDLE INC INC PLACEMENT IMG S&I FINE 61137 [facility] NEEDLE 4 [facility] ASPIRATIO INC INC N WITH IMAGING GUIDANCE SEDIMENTA 71964 [facility] TIPOP RATE 4 [facility] RBC INC INC NON-AUTOM ATED COLLECTIO 20123 [facility] N VENOUS 4 [facility] BLOOD INC INC VENIPUNCT URE COMPREHEN 16970 [facility] SIVE 4 [facility] [address] [facility] BLOOD/URI 4 [facility] C ACID INC INC RHEUMATOI 85962 [facility] D FACTOR 4 [facility] QUANTITAT INC INC OH URNLS DIP 92654 [facility] 4 [facility] STICK/TAB INC INC LET REAGENT AUTO MICROSCOP Y BLOOD 89967 [facility] COUNT 4 [facility] COMPLETE INC INC AUTO&AUTO DIFRNTL WBC PROSTATE G0103 [facility] CANCER 4 [facility] SCREENING INC INC ; PSA TEST SPMTRY 89714 JOHNNIE BLAIR W/VC 4 MJ MJ EXPIRATOR Y STEPHEN W/WO MXML VOL VNTJ ECG 36985 JOHNNIE BLAIR ROUTINE 4 MJ MJ ECG W/LEAST 12 LDS W/I&R RADEX 88905 [facility] HAND 4 [facility] MINIMUM 3 INC INC VIEWS NONEMERG A0120 FEDERATED FEDERATED TRNSPRT: 4 TRANS MINI-BUS TRANSPORT SERVBLUEG MTN ATION SER SIM AREA/OTH SYS PET 06898 [facility] SHOEMAKER PAR IMAGING [address] SERV ATTENUATI FOUNDATIO ON SKULL BASE MID-THIGH FLUORODEO A[address] [facility] [place] [place] XYGLUCOSE 4 Y Y F-18 FDG [facility] DX UP TO 45 MCI RADEX 10192 [facility] [place] HAND 4 MEDICAL [place] L[place] MINIMUM 3 IMAGING VIEWS ASS CAST Q4022 [facility] PETTEY SUPPLIES 4 PHYSICIAN MARITZA SHORT ARM S GROUP SPLINT ADULT FIBERGLAS S CLTX [address] [facility] PETTEY METACARPA 4 PHYSICIAN MARITZA L FX W/O S GROUP MANIPULAT ION EACH BONE RADEX 42877 [facility] [place] [place] HAND 4 MEDICAL EDER MINIMUM 3 IMAGING VIEWS ASS APPLICATI 02660 [facility]FAR[facility] ON SHORT 4 MILAGRO MOH ARM EMERGENCY SPLINT PHYS FOREARM-H AND STATIC CT THORAX 57579 [facility] 4 AYAH W/CONTRAS RADIOLOGY T ASSOCIAT MATERIAL RADEX 78592 [facility] RIBS 4 AYAH UNILATERA RADIOLOGY L 2 VIEWS ASSOCIAT RADIOLOGI 30152 [facility] C EXAM 4 AYAH CHEST 2 RADIOLOGY VIEWS ASSOCIAT FRONTAL&L ATERAL Encounters Encounter Start End Date Code Location Performer Type Date [facility] - 7 7 [facility] OUTPATIEN E T [facility] OFFICE 45724 OUTPATI 7 7 [facility] T VISIT [facility] E [facility]UTES [facility] 75607 OUTPATIEN 7 7 [facility] T VISIT 5 E MINUTES [facility] OFFICE 57440 [facility] OUTPATIEN 7 7 MEDICAL T VISIT SERV 25 FOUNDATIO MINUTES N [facility] OFFICE 57399 [place] [facility] 7 7 MEDICAL ION SERV NEW/ESTAB FOUNDATIO PATIENT N 60 MIN OFFICE 29743 [facility] 7 7 MEDICAL T VISIT SERV 25 FOUNDATIO MINUTES N OFFICE 01147 [facility] OUTPAT[facility] 7 7 HEALTH T VISIT SOLUTIONS 25 IN MINUTES [facility] OUT[facility] 72218 [facility] T [facility] 5 E MINUTES [facility] OFFICE 34994 [facility] T VISIT SERV 25 FOUNDATIO MINUTES [facility] - 7 7 [facility] OUTPATI[facility] OFFICE 78738 [place] [facility] 7 MEDICAL T VISIT SERV 25 FOUNDATIO MINUTES N OFFICE 81978 [facility] 7 7 [facility]ALTH[facility] T VISIT 5 E MINUTES [facility] - 7 7 [facility] OUTPATI[facility] E [facility]OSPITALS OFFICE 26159 [facility] 7 7 HEALTH T VISIT SOLUTIONS 25 IN MINUTES OFFICE 17163 [facility] 6 6 HEALTH T VISIT SOLUTIONS 15 IN MINUTES OFFICE 03731 [facility] 6 6 MEDICAL T VISIT SERV 25 FOUNDATIO MINUTES [facility] - 6 6 [facility] 37986 [facility] 6 6 Y T VISIT 5 HOSPITAL MINUTES OFFICE 29500 [facility] 6 6 MEDICAL TIGIST ION SERV NEW/ESTAB FOUNDATIO PATIENT N 60 MIN [facility] - 6 [facility] 28548 [facility]AT [facility] EMERGENC[facility]PART[facility] 6 6 COUNTY NAN T VISIT URGENT 15 TREAT [facility] - 6 6 [facility] OUTPAT[facility]EN [facility] T OFFICE 16921 [facility] 6 6 PHYSICIAN JAM T VISIT S GROUP 10 MINUTES OFFICE 82279 [facility] 6 6 PHYSICIAN JAM T VISIT S GROUP 15 MINUTES [facility] SERENA - 6 6 [facility] OUTPATI[facility] T OFFICE 46934 TITA VALENZUELA OUTPATIEN 6 6 [facility] T [facility]ISIT URGENT 25 TREAT MINUTES [facility]NA - 6 6 [facility] - 6 6 [facility]PAT[facility] - 6 6 [facility] OUTPATIEN [facility] T EMERGENCY 00926 SERENA 5 5 [facility] T VISIT HIGH/URGE NT [facility]VERITY [facility] SERENA - 5 5 [facility] OUTPATIEN [facility] T OFFICE 22927 [facility] 15 [facility] - 5 5 Y [facility] T OFFICE 51343 [place] [facility] 5 5 MEDICAL T VISIT SERV 25 FOUNDATIO MINUTES N OFFICE 80656 [place] [facility] 5 5 MEDICAL T VISIT SERV 25 FOUNDATIO MINUTES N [facility] UNIVERSIT - 5 5 Y [facility] T OFFICE 90610 [place] [facility] 5 5 MEDICAL ION SERV NEW/ESTAB FOUNDATIO PATIENT N 40 MIN OFFICE 85603 JOHNNIE BLAIR OUTPATIEN 4 4 MJ MJ T VISIT 15 MINUTES [facility] SERENA - 4 4 [facility] UNIVERSIT - 4 4 Y [facility] T OFFICE 00826 JOHNNIE BLAIR OUTPATIEN 4 4 MJ MJ T VISIT 25 MINUTES [facility] SERENA - 4 4 [facility] OUTPATIEN [facility] T OFFICE 41144 JOHNNIE BLAIR OUTPATIEN 4 4 MJ BARKER T VISIT 15 MINUTES HOSPITAL SERENA - 4 4 [facility] OUTPATIEN [facility] OFFICE 17357 [facility] 4 4 MEDICAL L ION SERV NEW/ESTAB FOUNDATIO PATIENT 60 MIN [facility]OSPITAL SERENA - 4 4 [facility]PATI[facility] - 4 4 [facility] OUTPATIEN [facility] PERIODIC 41561 JOHNNIE BLAIR PREVENTIV 4 4 MJ BARKER E MED EST PATIENT 40-64YRS OFFICE 70375 [facility] 4 4 PHYSICIAN MARITZA T VISIT S GROUP 15 MINUTES [facility] SERENA - 4 4 [facility] 4 4 Y [facility] 4 4 [facility]PATI[facility] EMERGENCY 15821 [facility] 4 [facility] EMERGENCY T VISIT PHYS MODERATE [facility]VERITY OFFICE 41281 TITA VALENZUELA OUTPATIEN 4 4 [facility]
--- OUTSIDE RECORDS SUMMARY | 2017-02-04 14:24 | External Medical Summary Rpt | CCD ---
Author Author , ROSALBA Organization [facility] Address Unknown Phone [email or web address] Care Team Providers Care Nut Processing Supervisor Name Role Phone LOLY-OMER AHM, Unavailable Unavailable LOLY-OMER AHM [facility] [place], Unavailable Unavailable [facility] [place] [facility] [place], Unavailable Unavailable [facility] [place] ALFARIS MOH, ALFARIS Unavailable Unavailable MOH ARAGON, ARAGON Unavailable Unavailable BEINEKE OLGA LIDIA, BEINEKE Unavailable Unavailable OLGA LIDIA HENDERSON ALL, HENDERSON ALL Unavailable Unavailable COMER DB, COMER DB Unavailable Unavailable LIZA EDER, Unavailable Unavailable LIZA EDER ELAYI, ELAYI Unavailable Unavailable [facility] Unavailable Unavailable [facility], [facility] Unavailable Unavailable [facility]SP[facility]ATION [facility], [facility] BECKETT, BECKETT Unavailable Unavailable [facility] Un[facility] Unavailable [facility], [facility] Unavailable Unavailable HOSPITAL P, [facility] [place] AYAH, SOLIS Unavailable Unavailable [facility], Unavailable Unavailable [facility] BIANCA, BIANCA Unavailable Unavailable BIANCA NAN, BIANCA Unavailable Unavailable NAN [facility] Un[facility] Unavailable [facility], [facility], MERLINE Unavailable Unavailable [facility] Un[facility] Un[facility] LARRY JR DWI, LARRY Unavailable Unavailable JR DWI JOHNNIE MJ, JOHNNIE Unavailable Unavailable MJ JOHNNIE MJ, JOHNNIE Unavailable Unavailable MJ ANGIE, ANGIE Unavailable Unavailable ANGIE CON, ANGIE CON Unavailable Unavailable [facility], Unavailable Unavailable [facility] Unavailable Unavailable [facility], [facility] Unavailable Unavailable AMBULANCE SE, [facility] Unavailable Unavailable AMBULANCE , [facility] SE [facility]URAL Unavailable Unavailable HEALTH, [facility] Unavailable Unavailable URGENT TREAT, [facility] PETTEY JAM, PETTEY Unavailable Unavailable JAM RASLAU FLA, RASLAU Unavailable Unavailable FLA SHARP L, SHARP Unavailable Unavailable [facility] Unavailable Unavailable [facility], [facility] Unavailable [facility], Unavailable Unavailable [facility] Unavailable [facility], [facility] HARTLEY TIGIST, HARTLEY Unavailable Unavailable TIGIST LEYLARODONNAKASHARAN, Unavailable Unavailable BRENDENKAYA Purpose Continuity of Care Document - 08-09-2013 through 2016 Problems Code Diagnosis DOS Provider Status [id number] ENCOUNTER 12-24-2016 [facility] FOLLOW SURGERY CIRC SYS [id number] PRESENCE 12-24-2016 [facility] IMPLANTABLE HOSPITALS CARDIAC DEFIBRILLAT OR I255 ISCHEMIC 12-17-2016 [place] [facility] CARDIOMYOPA SERV THY [facility] I517 CARDIOMEGAL 12-17-2016 [place] [facility] Y [facility] E785 HYPERLIPIDE 12-07-2016 [facility] UNSPECIFIED HOSPITALS I2510 ASHD [place] NATION 12-07-2016 CORONARY HEALTHCARE ARTERY W/O HOSPITALS ANGINA PECT[place]IS M5430 SCIATICA 12-07-2016 UNSPECIFIED HEALTHCARE SIDE HOSPITALS R001 BRADYCARDIA 11-02-2016 [facility] UNSPEC[facility]IED [facility] R55 SYNCOPE AND 11-02-2016 [place] [facility] COLLAPSE [facility] R69 ILLNESS 11-02-2016 [facility] UNSPECIFIED TRANSPORTAT ION SER R9431 ABNORMAL 11-02-2016 [place] [facility] ELECTROCARD SERV IOGRAM [facility]OUND[facility] [id number] PERSONAL 11-02-2016 [place] [facility] HISTORY OF SERV NICOTINE FOUNDATION DEPENDENCE J0100 ACUTE 09-24-2016 [facility] SINUSITIS SOLUTIONS UNSPECIFIED IN I252 OLD 07-20-2016 [facility] INFARCTION [facility]OSP[facility] I5020 UNSPECIFIED 07-20-2016 [place] [facility] SYSTOLIC SERV CONGESTIVE [facility]ATION HEART FAILURE R42 DIZZINESS 07-20-2016 AND HEALTHCARE GIDDINESS HOSPITALS Z720 TOBACCO USE 07-20-2016 [facility]ALTHCARE HOSPITALS Z955 PRESENCE OF 07-20-2016 CORONARY HEALTHCARE ANGIOPLASTY HOSPITALS IMPLANT & GRAFT J208 ACUTE 06-23-2016 [facility] BRONCHITIS [facility]ALTH DUE TO SOLUTIONS OTHER SPEC IN ORGANISMS R05 COUGH 06-23-2016 [facility] SOLUTIONS IN I2129 ST 04-22-2016 [facility] E[facility]ATION [facility] MYOCARDIAL SOLUTIONS INFARCT IN INVOLV [facility] SITES I9589 OTHER 04-22-2016 [facility] HYPOTENSION HEALTH SOLUTIONS IN R0789 OTHER CHEST 04-22-2016 [facility] PAIN HEALTH SOLUTIONS IN R0600 DYSPNEA 04-13-2016 UNSPECIFIED [facility]ALTHCARE HOSPITALS I2119 ST 03-29-2016 [place] [facility] ME INVOLV [facility] OTH CORONARY ART INF WALL I493 VENTRICULAR 03-29-2016 [place] [facility] PREMATURE [facility] DEPOLARIZAT FOUND[facility] ION I499 CARDIAC 03-29-2016 [place] [facility] ARRHYTHMIA SERV UNSPECIFIED FOUNDATION I2111 ST 03-27-2016 [place] [facility] MYOCARDIAL FOUNDATION INFARCTION INVOLVING RCA I213 ST 03-27-2016 [place] [facility] MYOCARDIAL [facility] INFARCTION UNS SITE I2582 CHRONIC 03-27-2016 [place] [facility] TOTAL SERV OCCLUSION FOUNDATION OF CORONARY ARTERY I4581 LONG QT 03-27-2016 [place] [facility] SYNDROME SERV [facility] I472 VENTRICULAR 03-27-2016 [place] [facility] TACHYCARDIA FOUNDATION I498 OTHER 03-27-2016 [place] [facility] SPECIFIED SERV CARDIAC FOUNDATION ARRHYTHMIAS I959 HYPOTENSION 03-27-2016 [facility] UNSPECIFIED AMBULANCE SE R0602 SHORTNESS 03-27-2016 [place] [facility] OF BREATH SERV FOUNDATION Z743 NEED FOR 03-27-2016 [facility] CONTINUOUS [place] SUPERVISION E041 NONTOXIC 03-18-2016 [facility] THYROID NODULE J449 CHRONIC 03-18-2016 [facility] PULMONARY DISEASE UNS K219 GASTRO-ESOP 03-18-2016 [facility] DISEASE WITHOUT ESOPHAGITIS R4020 UNSPECIFIED 03-18-2016 [place] [facility] COMA SERV [facility] R918 OTHER 03-18-[address] [facility] ABNORMAL FINDING OF LUNG FIELD E77012 OTHER LONG 03-18-2016 [facility] CURRENT DRUG THERAPY Z833 FAMILY 03-18-2016 [facility] DIABETES MELLITUS V27050 PERSONAL 03-18-2016 [facility] TRAUMATIC BRAIN INJURY M5431 SCIATICA 02-21-2016 [facility] SIDE [facility] URGENT TREAT Z80130 PAIN IN 01-17-2016 [place] [facility] M7022 OLECRANON 01-17-2016 [facility] BURSITIS PHYSICIANS LEFT ELBOW GROUP A75808 PAIN IN 12-20-2015 [place] LEFT MEDICAL FINGERS IMAGING ASS F54959 PAIN IN 12-20-2015 [facility]NSPECIFIED [facility] FINGERS INC M7021 OLECRANON 12-17-2015 [facility] BURSITIS [facility] RIGHT ELBOW URGENT TREAT G544 LUMBOSACRAL 09-13-2015 [facility] ROOT [facility] DISORDERS INC NEC M545 LOW BACK 09-13-2015 [facility] PAIN [facility] INC E782 MIXED 09-05-2015 [facility] HYPERLIPIDE [facility] URGENT TREAT J301 ALLERGIC 09-05-2015 [facility] RHINITIS [facility] DUE TO URGENT POLLEN TREAT J441 CHRONIC 09-05-2015 [facility] OBSTRUCTIVE [facility] PULMONARY URGENT DZ TREAT W/EXACERBAT ION N401 BENIGN 09-05-2015 [facility] PROSTATIC [facility] HYPERPLASIA URGENT LW URINARY TREAT TRACT SX 2768 HYPOPOTASSE 09-28-2014 [facility] P 44130 RESTLESS 09-28-2014 [facility] SYNDROME INC 4739 UNSPECIFIED 09-28-2014 [facility] SINUSITIS [facility] INC 496 CHRONIC 09-28-2014 [place] [facility] MEDICAL OBSTRUCTION IMAGING ASS NEC 5849 ACUTE 09-28-2014 [facility] P UNSPECIFIED 37525 HYPERTROPHY 09-28-2014 [facility] PROSTATE [facility] W/O UR OBST INC & OTH LUTS 7802 SYNCOPE AND 09-28-2014 [facility] COLLAPSE [facility] AMBULANCE SE 7804 DIZZINESS 09-28-2014 [facility] P 7808 GENERALIZED 09-28-2014 [facility] [place] [address] SHORTNESS 09-28-2014 [place] [facility] BREATH MEDICAL IMAGING ASS 84388 NAUSEA WITH 09-28-2014 [facility] VOMITING [facility] [place] [address] OTHER 09-28-2014 [place] NONSPECIFIC MEDICAL ABNORMAL IMAGING ASS FINDING OF LUNG FIELD 470 DEVIATED 08-31-2014 [place] [facility] NASAL SERV SEPTUM FOUNDATION 4780 HYPERTROPHY 08-31-2014 [place] [facility] NASAL SERV TURBINATES FOUNDATION 05157 ESOPHAGEAL 08-31-2014 [facility] V7284 UNSPECIFIED 08-31-2014 [facility] PRE-OPERATI VE EXAMINATION 24703 OTHER 06-26-2014 [facility] NASAL CAVITY AND SINUSES 5239 UNSPECIFIED 06-26-2014 [facility] PERIODONTAL DISEASE 7099 UNSPECIFIED 06-26-2014 [facility] OF SKIN&SUBCUT ANEOUS TISSUE 7840 HEADACHE 06-26-2014 [place] [facility] 4610 ACUTE 04-03-2014 JOHNNIETOMMIE BARKER MAXILLARY SINUSITIS 4611 ACUTE 04-03-2014 JOHNNIE MJ FRONTAL SINUSITIS 2410 NONTOXIC 03-28-2014 [facility] UNINODULAR [facility] GOITER INC 7213 LUMBOSACRAL 03-28-2014 [place] [facility] SPONDYLOSIS IMAGING ASS WITHOUT MYELOPATHY 2374 NEOPLASM 03-15-2014 [place] [facility] UNCERTAIN SERV BHV FOUNDATION OTH&UNSPEC ENDOCRN GLANDS 2409 GOITER, 03-15-2014 [facility] UNSPECIFIED OF [place] [facility] 4779 ALLERGIC 02-26-2014 JOHNNIE BARKER RHINITIS CAUSE UNSPECIFIED 94580 UNSPECIFIED 02-26-2014 JOHNNIE BARKER ARTHROPATHY MULTIPLE SITES 7242 LUMBAGO 02-26-2014 JOHNNIE BARKER 4928 OTHER 02-13-2014 [facility] EMPHYSEMA [facility] INC 97359 OBSTRUCTIVE 01-16-2014 JOHNNIE BARKER CHRONIC BRONCHITIS WITHOUT EXACERBAT V5419 AFTERCARE 01-04-2014 [place] [facility] TRAUMATIC IMAGING ASS FRACTURE OTHER BONE 54258 PAIN IN 11-22-2013 [facility] JOINT, SITE [facility]OS[facility] INC UNSPECIFIED 46116 URINARY 11-22-2013 [facility] FREQUENCY [facility] INC V700 ROUTINE 11-14-2013 JOHNNIE BARKER GENERAL MEDICAL EXAM@HEALTH CARE FACL 38110 THYROTOX 10-25-2013 [place] [facility] W/O SERV GOITER/OTH FOUNDATIO CAUSE W/O CRISIS 82684 OTHER 10-25-2013 [place] [facility] DISEASES OF SERV LUNG NOT FOUNDATIO ELSEWHERE CLASSIFIED 50763 10-25-2013 [facility] TRANSPORTAT ION SER V711 OBSERVATION 10-25-2013 [facility] SUSPECTED MALIGNANT NEOPLASM 53172 CLOSED 10-11-2013 [facility] FRACTURE OF PHYSICIANS SHAFT OF GROUP METACARPAL BONE 7822 LOCALIZED 10-07-2013 [place] SUPERFICIAL MEDICAL SWELLING IMAGING ASS [place]MP 98648 CLOSED 10-07-2013 [facility] FRACTURE N EMERGENCY METACARPAL PHYS BONE SITE UNSPECIFIED E9289 UNSPECIFIED 10-07-2013 [facility] ACCIDENT N EMERGENCY PHYS 69673 CLOSED 08-21-2013 [facility] FRACTURE OF RADIOLOGY ONE RIB ASSOCIAT 27486 SOLITARY 08-14-2013 [facility] 8483 SPRAIN AND 08-14-2013 [facility] STRAIN OF [facility] 46930 CHEST PAIN 08-09-2013 [facility] UNSPECIFIED RADIOLOGY ASSOCIAT 9599 INJURY 08-09-2013 [facility] OTHER AND RADIOLOGY UNSPECIFIED ASSOCIAT UNSPECIFIED SITE Medications Na ND Rx Da Fi Fi [...] -0 .0 00 RL ti OB 70 00 IS ve EN 84 20 20 77 LE ZA 61 17 17 71 NH 5 37 IN UG E S 10 [...] 88 -1 -0 .0 00 RL ti NH 40 00 IS ve OL 82 20 20 77 LE OL 61 17 17 92 0 09 WALKER UG CC S ER 50 MG TA B AT 00 09 09 30 30 00 CA Ac OR 37 -0 -2 .0 00 RL ti VA [address] 95 20 20 76 LE AT 30 17 17 76 IN 5 70 UG 80 S MG TA BL ET AM 16 09 09 90 30 00 CA Ac IT 72 -0 -2 .0 00 RL ti RI 90 00 IS ve PT 17 20 20 77 LE YL 11 17 [address] E UG HC S L 10 MG TA B TA 57 09 09 30 30 00 CA Ac MS 23 -0 -2 .0 00 RL ti UL 70 6 9- 00 00 IS ve OS 01 20 20 77 LE IN 40 17 17 60 5 33 HC UG L S 0. 4 MG CA PS UL E IS 68 09 09 30 30 00 CA Ac OS 38 -0 -2 .0 00 RL ti OR 20 9- 00 00 IS ve BI 65 20 20 78 LE DE 10 17 17 04 1 01 MN UG S ER 60 MG TA BL ET AC 00 08 09 10 2 00 CA Ac ET 09 -2 -2 .0 00 RL ti AM 30 4- 2- 00 00 IS ve IN 15 20 20 77 LE OP 00 17 17 97 HE 1 45 N- UG CO S D #3 TA BL ET CY 69 08 09 30 30 00 CA Ac CL 09 -1 -0 .0 00 RL ti OB 70 8- 00 00 IS ve EN 84 20 20 77 LE ZA 61 17 [address] IN UG E S [...] 88 -1 -0 .0 00 RL ti NH 40 4- 8- 00 00 IS ve OL 82 20 20 77 LE OL 61 17 17 92 0 09 WALKER UG CC S ER 50 MG TA B BR 00 08 09 60 30 00 CA Ac IL 18 -1 -0 .0 00 RL ti IN 60 0- 8- 00 00 IS ve TA 77 20 20 76 LE 76 17 17 76 90 0 69 UG MG S TA BL ET IS 68 08 09 30 30 00 [...] 88 -2 -2 .0 00 RL ti NH 40 8- 5- 00 00 IS ve OL 82 20 20 77 LE OL 61 17 17 42 0 26 WALKER UG CC S ER 50 MG TA B CY 69 07 08 30 30 00 CA Ac CL 09 -2 -1 .0 00 RL ti OB 70 1- 8- 00 00 IS ve EN 84 20 20 77 LE ZA 61 17 17 71 NH 5 37 IN UG E S 10 [...] -2 .0 00 RL ti RI 90 3- 8- 00 00 IS ve PT 17 20 20 77 LE YL 11 17 [address] Khushbu UG HC S L 10 MG TA B TA 00 07 07 30 30 00 CA Ac MS 78 -0 -2 .0 00 RL ti UL 12 3- 8- 00 00 IS ve OS 07 20 20 77 LE IN 60 17 [address] NIEVES UG L S 0. 4 MG CA PS UL E CY 69 06 07 30 30 00 CA Ac CL 09 -2 -2 .0 00 RL ti OB 70 3- 1- 00 00 IS ve EN 84 20 20 77 LE ZA 61 17 [address] ABBASI UG E S 10 MG TA BL ET VE 00 06 07 18 16 00 CA Ac NT 17 -2 -2 .0 00 RL ti OL 30 8- 1- 00 00 IS ve IN 68 20 20 77 LE 22 17 [address] Trevin UG 90 S MC G IN VELASCO LE R LI 68 06 07 90 90 00 CA Ac SI 18 -2 -2 .0 00 RL ti NO 00 2- 1- 00 00 IS ve NH 51 20 20 77 LE IL 30 17 17 68 5 3 09 UG MG S TA BL ET LI 68 06 07 30 30 00 CA Ac SI 18 -1 -1 .0 00 RL ti NO 00 7- 4- 00 00 IS ve NH 51 20 20 77 LE IL 20 17 17 24 2 47 2. UG 5 S MG TA BL ET AM 16 06 06 90 30 00 CA Ac IT 72 -0 -3 .0 00 RL ti RI 90 1- 0- 00 00 IS ve PT 17 20 20 77 LE YL 11 17 [address] E UG HC S L 10 MG TA B BR 00 06 06 60 30 00 CA Ac IL 18 -0 -3 .0 00 RL ti IN 60 6- 0- 00 00 IS ve TA 77 20 20 76 LE 76 17 17 [address] UG MG S TA BL ET TA 00 06 06 30 30 00 CA Ac MS 78 -0 -3 .0 00 RL ti UL 12 7- 0- 00 00 IS ve OS 07 20 20 77 LE IN 60 17 [address] HC UG L S 0. 4 MG CA PS UL E LI 68 05 06 30 30 00 CA Ac SI 18 -2 -2 .0 00 RL ti NO 00 5- 3- 00 00 IS ve NH 51 20 20 77 LE IL 20 17 [address] 2[address] UG 5 S MG TA BL ET CY 69 05 06 30 30 00 CA Ac CL 09 -2 -2 .0 00 RL ti OB 70 5- 3- 00 00 IS ve EN 84 20 20 77 LE ZA 61 17 [address] IN UG E S 10 MG TA BL ET AT 00 05 06 30 30 00 CA Ac OR 37 -3 -2 .0 00 RL ti VA 83 1- 3- [address] 95 20 20 76 LE AT 30 17 17 [address] UG 80 S MG TA BL ET IS 68 05 30 30 00 CA Ac OS 38 -3 -2 .0 00 RL ti OR 20 1- 3- 00 00 IS ve BI 65 20 20 76 LE DE 10 17 [address] MN UG S ER 60 MG TA BL ET ME 49 05 06 30 30 00 CA Ac TO 88 -3 -2 .0 00 RL ti NH 40 1- 3- 00 00 IS ve OL 82 20 20 77 LE OL 61 17 [address] WALKER UG CC S ER 50 MG TA B CE 57 05 06 20 10 00 CA Ac FD 23 -2 -2 .0 00 RL ti IN 70 6- 3- 00 00 IS ve IR 09 20 20 77 LE 96 17 17 [address] 0 UG MG S CA PS UL E BR 00 05 06 60 30 00 CA Ac IL 18 -0 -0 .0 00 RL ti IN 60 8- 2- 00 00 IS ve TA 77 20 20 76 LE 76 17 17 [address] UG MG S TA BL ET ME 49 05 05 30 30 00 CA Ac TO 88 -0 -2 .0 00 RL ti NH 40 1- 6- 00 00 IS ve OL 82 20 20 77 LE OL 61 17 [address] WALKER UG CC S ER 50 MG TA B TA 00 05 05 30 30 00 [...] UG 80 S MG TA BL ET LI 68 04 05 30 30 00 CA Ac SI 18 -2 -1 .0 00 RL ti NO 00 6 9 00 IS ve NH 51 20 20 77 LE IL 20 17 [address] 2. UG 5 S MG TA BL ET CY 69 04 05 30 30 00 CA Ac CL 09 -2 -1 .0 00 RL ti OB 70 00 IS ve EN 84 20 20 77 LE ZA 61 17 17 39 NH 5 98 IN UG E S 10 MG TA BL ET AM 00 04 04 90 30 00 CA Ac IT 78 -0 -2 .0 00 RL ti RI 11 3- 8- 00 IS ve PT 48 20 [...] 37 -0 -2 .0 00 RL ti NH 80 3- 8- 00 00 IS ve OL 01 20 20 76 LE OL 80 17 [address] BEDOLLA UG RT S RA TE 25 MG TA B IS 68 04 04 30 30 00 CA Ac OS 38 -0 -2 .0 00 RL ti OR 20 3 8 00 IS ve BI 65 20 20 76 LE DE 10 17 17 89 1 31 MN UG S ER 60 MG TA BL ET NI 43 04 04 25 6 00 CA Ac TR 59 -0 -2 .0 00 RL ti OG 80 3 8 00 IS ve LY 43 20 20 77 LE CE 61 17 [address] Hyatt UG 0. S 4 MG TA BL ET SL CY 00 03 04 30 30 00 CA Ac CL 60 -2 -2 .0 00 RL ti OB 33 7 00 IS ve EN 07 20 20 76 LE ZA 92 17 17 47 NH 8 51 IN UG E S 10 MG TA BL ET LI 68 03 04 30 30 00 CA Ac SI 18 -2 -2 .0 00 RL ti NO 00 00 IS ve NH 51 20 20 77 LE IL 20 17 17 24 2 47 2Roma UG 5 S MG TA BL ET AM 00 03 03 90 30 00 CA Ac IT 78 -0 -3 .0 00 RL ti RI 11 6- 00 IS ve PT 48 20 20 76 LE YL 61 17 [address] Khushbu LLANOS HC S L 10 MG TA B VE 00 02 03 18 16 00 CA Ac NT 17 -2 -2 .0 00 RL ti OL 30 00 IS ve IN 68 20 20 75 LE 22 17 17 [address] Trevin LLANOS 90 S MC G IN VELASCO LE R CY 00 02 03 30 30 00 CA Ac CL 60 -2 -2 .0 00 RL ti OB 33 7- 00 IS ve EN 07 20 20 76 LE ZA 93 17 [address] IN UG E S 10 MG TA BL ET TA 00 02 03 30 30 00 CA Ac MS 78 -2 -2 .0 00 RL ti UL 12 7- 00 IS ve OS 07 20 20 76 LE IN 60 17 [address] HC UG L S 0. 4 MG CA PS UL E BR 00 02 03 60 30 00 CA Ac IL 18 -2 -2 .0 00 RL ti IN 60 7- 00 IS ve TA 77 20 20 76 LE 76 17 17 [address] UG MG S TA BL ET AT 00 02 03 30 30 00 CA Ac OR 37 -2 -2 .0 00 RL ti VA 83 7- 4- [address] 95 20 20 76 LE AT 30 17 17 [address] UG 80 S MG TA BL ET IS 68 02 03 30 30 00 CA Ac OS 38 -2 -2 .0 00 RL ti OR 20 7- 4- 00 00 IS ve BI 65 20 20 76 LE DE 10 17 [address] MN UG S ER 60 MG TA BL ET ME 62 02 03 30 30 00 CA Ac TO 03 -2 -2 .0 00 RL ti NH 70 7- 4- 00 00 IS ve OL 83 20 20 76 LE OL 01 17 17 89 0 32 WALKER UG CC S ER 25 MG TA B RO 00 02 03 [...] 25 S 0 MG TA BL ET CY 00 02 30 30 00 CA Ac CL 60 -3 -2 .0 00 RL ti OB 33 1- 4- 00 00 IS ve EN 07 20 20 76 LE ZA 93 17 [address] IN UG E S 10 MG TA BL ET TA 00 01 02 30 30 00 CA Ac MS 78 -3 -2 .0 00 RL ti UL 12 1- 4- 00 00 IS ve OS 07 20 20 76 LE IN 60 17 [address] HC UG L S 0. 4 MG CA PS UL E BR 00 01 02 60 30 00 CA Ac IL 18 -3 -2 .0 00 RL ti IN 60 1- 4- 00 00 IS ve TA 77 20 20 76 LE 76 17 17 [address] UG MG S TA BL ET AT 00 01 02 30 30 00 CA Ac OR 37 -3 -2 .0 00 RL ti VA 83 1- 4- [address] 95 20 20 76 LE AT 30 17 17 [address] UG 80 S MG TA BL ET VE 00 01 02 18 16 00 CA Ac NT 17 -2 -1 .0 00 RL ti OL 30 4- 7- 00 00 IS ve IN 68 20 20 75 LE 22 17 [address] Trevin LLANOS 90 S MC G IN VELASCO LE R IS 68 01 02 30 30 00 CA Ac OS 38 -1 -1 .0 00 RL ti OR 20 8- 0- 00 00 IS ve BI 65 20 20 76 LE DE 10 17 [address] CRUZ UG S ER 60 MG TA BL ET ME 62 01 02 30 30 00 CA Ac TO 03 -1 -1 .0 00 RL ti NH 70 8- 0- 00 00 IS ve OL 83 20 20 76 LE OL 01 17 17 89 0 32 WALKER UG CC S ER 25 MG TA B CY 65 04 26 30 30 00 CA Ac CL 16 -0 -2 .0 00 RL ti OB 20 2- 7- 00 00 IS ve EN 54 20 20 76 LE ZA 11 17 [address] ABBASI UG E S 10 MG TA BL ET AM 00 01 90 30 00 CA Ac IT 78 -0 -2 .0 00 RL ti RI 11 2- 7- 00 00 IS ve PT 48 20 20 76 LE YL 61 17 [address] Khushbu UG HC S L 10 MG TA B TA 00 01 30 30 00 CA Ac MS 78 [...] DE 00 17 [address] CRUZ UG S ER 30 MG TA BL ET BR 00 12 01 60 30 00 CA Ac IL 18 -2 -2 .0 00 RL ti IN 60 2- 0- 00 00 IS ve TA 77 20 20 76 LE 76 16 17 [address] LLANOS MG S TA BL ET LI 68 12 30 30 00 CA Ac SI 18 -2 -2 .0 00 RL ti NO 00 2- 0- 00 00 IS ve NH 51 20 20 76 LE IL 30 16 17 [address] UG MG S TA BL ET ME 00 12 01 18 90 00 CA Ac TO 37 -1 -1 0. 00 RL ti NH 80 9- 3- 00 00 IS ve OL 01 20 20 0 76 LE OL 80 16 17 74 1 80 TA UG RT S RA TE 25 MG TA B Procedures Procedure DOS Code Location Performer Comment RADIOLOGI 39780 [place] ANGIE C 7 MEDICAL EXAMINATI SERV ON CHEST FOUNDATIO SINGLE N VIEW FRONTAL INSJ/RPLC 58144 [place] ELAYI MT PERM 7 MEDICAL DFB SERV W/TRNSVNS FOUNDATIO LDS N 1/DUAL CHMBR ECG 36106 [place] MERLINE ROUTINE 7 MEDICAL ECG SERV W/LEAST FOUNDATIO 12 LDS N I&R ONLY NONEMERG A0120 FEDERATED FEDERATED TRNSPRT: 7 MINI-BUS TRANSPORT TRANSPORT MTN ATION SER ATION SER AREA/OTH SYS NONEMERG A0120 FEDERATED FEDERATED TRNSPRT: 7 MINI-BUS TRANSPORT TRANSPORT MTN ATION SER ATION SER AREA/OTH SYS NONEMERG A0120 FEDERATED FEDERATED TRNSPRT: 7 MINI-BUS TRANSPORT TRANSPORT MTN ATION SER ATION SER AREA/OTH SYS INJECTION A9585 [facility] 7 HEALTHCAR HEALTHCAR GADOBUTRO E E L 0.1 ML [facility] CARDIAC 86012 [place] ZAGUROVSK MRI FOR 7 MEDICAL AYA VELOCITY SERV FLOW FOUNDATIO MAPPING N CARDIAC 84370 [place] ZAGUROV[place] MRI W/WO 7 MEDICAL AYA CONTRAST SERV & FURTHER FOUNDATIO SEQ N NONINVASI 72597 [place] VE 7 HEALTHCAR HEALTHCAR EAR/PULSE E E OXIMETRY [facility] SINGLE DETER ECG 88077 [place] MERLINE ROUTINE 6 MEDICAL ECG SERV W/LEAST FOUNDATIO 12 LDS N I&R ONLY NATRIURET 26101 [facility] IC 6 HEALTHCAR HEALTHCAR PEPTIDE E E [facility] BASIC 26812 [facility] METABOLIC 6 HEALTHCAR HEALTHCAR PANEL E E CALCIUM [facility] [place] [address] [place] MAGNESIUM 6 HEALTHCAR HEALTHCAR E E [facility] COLLECTIO 43984 [facility] N VENOUS 6 HEALTHCAR HEALTHCAR BLOOD E E VENIPUNCT HOSPITALS HOSPITALS URE ECG 16142 [place] BECKETT ROUTINE 6 MEDICAL ECG SERV W/LEAST FOUNDATIO 12 LDS N I&R ONLY AMB A0431 AIR AIR SERVICE 6 METHODS METHODS CONVNTION [facility] AIR SRVC TRANSPORT [address] AMB [id number] [facility] [address] [place] [address] ALS AMBULANCE AMBULANCE EMERGENCY SE SE TRANSPORT LEVEL 1 PRQ 07968 [place] LOLY-LAT TRLUML 6 MEDICAL IF AHM CORONRY SERV TOT FOUNDATIO OCCLUS N REVASC ME ONE VSL ECG 85016 [facility] CHI ROUTINE 6 MEDICAL ECG SERV W/LEAST FOUNDATIO 12 LDS N I&R ONLY RADIOLOGI 21684 [place] ANGIE CON C 6 MEDICAL EXAMINATI SERV ON CHEST FOUNDATIO SINGLE N VIEW FRONTAL GROUND A0425 [facility] MILEAGE [address] [place] [address] PER AMBULANCE AMBULANCE STATUTE SE SE MILE COLLECTIO 91805 [facility] N VENOUS 6 Y Y BLOOD [facility] VENIPUNCT URE ORGANIC 42987 [facility] ACID 1 6 [facility] HEM[facility] 11334 [facility] N 6 Y Y GLYCOSYLA [facility] DAWIT A1C ARTHROCEN 09049 [facility] PETTEY TESIS 6 PHYSICIAN MARITZA ASPIR&/IN S GROUP J INTERM JT/BURS W/O US INJ J0702 [facility] PETTEY BETAMETHA 6 PHYSICIAN MARITZA SONE S GROUP ACETATE & PHOSPHATE 3 MG NONEMERG A0120 FEDERATED FEDERATED TRNSPRT: 6 MINI-BUS TRANSPORT TRANSPORT MTN ATION SER ATION SER AREA/OTH SYS RADEX 84428 [facility] ELBOW 6 [facility] COMPLETE INC INC MINIMUM 3 VIEWS RADEX 70906 [facility] FINGR 6 [facility] MINIMUM 2 INC INC VIEWS ELECTROEN 09471 [facility] CEPHALOGR 6 [facility] AM W/REC INC INC AWAKE&CONNOR WSY THERAPEUT 47772 SERENA LYONS IC PX 1/> 6 [facility] AREAS INC INC EACH 15 MIN EXERCISES THERAPEUT 62237 SERENA LYONS IC PX 1/> 6 [facility] AREAS INC INC EACH 15 MIN EXERCISES APPL 08929 SERENA [facility] MODALITY 6 [facility] 1/> AREAS INC INC ULTRASOUN D EA 15 MIN PHYSICAL 92828 SERENAPOP [facility]ONS THERAPY 6 [facility] [place] [address] SERENA LYONS HEAD/BRAI 6 [facility] N W/O INC INC CONTRAST MATERIAL NONEMERG A0120 FEDERATED FEDERATED TRNSPRT: 6 MINI-BUS TRANSPORT TRANSPORT MTN ATION SER ATION SER AREA/OTH SYS HANDLG&/O 53724 TITA VALENZUELA R CONVEY 6 [facility] OF SPEC URGENT FOR TR TREAT OFFICE TO LAB COLLECTIO 19719 TITA Hyatt VENOUS 6 [facility] BLOOD URGENT VENIPUNCT TREAT URE COLLECTIO 19831 SERENA [facility] N VENOUS 5 [facility] BLOOD INC INC VENIPUNCT URE HOSPITAL G0378 [facility]ERENA [facility] OBSERVATI 5 [facility] ON INC INC SERVICE PER HOUR BASIC 45635 [facility]ERENA [facility] METABOLIC 5 [facility] [facility] PANEL INC INC CALCIUM TOTAL ECG 56250 SERENA LYONS ROUTINE 5 [facility] ECG INC INC W/LEAST 12 LDS TRCG ONLY W/O I&R RADEX 54005 [place] ALL ABDOMEN 5 MEDICAL COMPL IMAGING W/DCBTS&/ ASS ERC VIEWS CREATINE 66625 SERENA LYONS KINASE 5 [facility] TOTAL INC INC TOBACCO 21379 SERENA LYONS USE 5 [facility] CESSATION INC INC INTERMEDI ATE 3-10 MINUTES AMB A0422 [place] OXYGEN&O2 [facility] AMBULANCE AMBULANCE [place] [address] SERENA LYONS INFUSION 5 [facility] THERAPY/P INC INC ROPHYLAXI S /DX 1ST TO 1 HR RADIOLOGI 60707 [facility]ER HENDERSON ALL C EXAM 5 MEDICAL CHEST 2 IMAGING VIEWS ASS FRONTAL&L ATERAL ECG 48690 SERENA JUAREZ JR ROUTINE 5 [facility] W/LEAST P 12 LDS I&[place] [address] SERENA SERENA TROPONIN 5 [facility] QUANTITAT INC INC [place] BLOOD 38380 SERENA SERENA COUNT 5 [facility] COMPLETE INC INC AUTO&AUTO DIFRNTL [facility] [id number] SERENA [facility] OBSERVATI 5 [facility] ON INC INC SERVICE PER HOUR CREATINE 68550 SERENA LYONS KINASE MB 5 [facility] FRACTION INC INC ONLY GROUND A0425 [place] MILEAGE 5 [facility] PER AMBULANCE AMBULANCE STATUTE SE SE MILE AMBULANCE A0429 [place] SERVICE 5 [facility] BLS AMBULANCE AMBULANCE EMERGENCY SE SE TRANSPORT COMPREHEN 35201 SERENA SERENA SIVE 5 [facility] METABOLIC INC INC PANEL COLLECTIO 35228 [facility] N VENOUS 5 Y Y BLOOD [facility] VENIPUNCT URE C-REACTIV 67308 [facility] E PROTEIN 5 Y Y HOSPITAL [facility] COMPREHEN 56937 [facility] 5 Y Y METABOLIC [facility] PANEL BLOOD 94517 [facility] COUNT 5 Y Y COMPLETE [facility] AUTOMATED ECG 78044 [place] [facility] CHI ROUTINE 5 MEDICAL ECG SERV W/LEAST FOUNDATIO 12 LDS N I&R ONLY RHEUMATOI 05131 UNIVERSIT UNIVERSIT D FACTOR 5 Y Y QUANTITAT [facility] HOSPITAL OH HEPATITIS 62748 UNIVERSIT UNIVERSIT C 5 Y Y ANTIBODY HOSPITAL HOSPITAL ECG 57068 [facility] ROUTINE 5 Y Y ECG [facility] W/LEAST 12 LDS TRCG ONLY W/O I&R PROTHROMB 41879 [facility] IN TIME 5 [place] [address] [facility] UNIVERS BLOOD/URI 5 Y Y C ACID [facility] HOSPITAL SEDIMENTA 06153 [facility] TION RATE 5 Y Y RBC HOSPITAL HOSPITAL AUTOMATED THROMBOPL 06153 [facility] ASTIN 5 Y Y TIME HOSPITAL HOSPITAL PARTIAL PLASMA/WH OLE BLOOD ANTINUCLE 87247 [facility] AR 5 Y Y ANTIBODIE [facility] [place] [address] [place] RASLAU MAXILLOFA 5 MEDICAL FLA CIAL W/O SERV CONTRAST FOUNDATIO MATERIAL N RADEX 43679 SERENAPOP LYONS SPINE 4 [facility] LUMBOSACR INC INC AL MINIMUM 4 [place] [address] SERENA LYONS THYROID 4 [facility] STIMULATI INC INC NG HORMONE TSH CYTP EVAL 80767 [facility] 4 Y Y NEEDLE HOSPITAL HOSPITAL ASPIRATE INTERP & REPORT US SOFT 52708 [facility] TISSUE 4 MEDICAL L HEAD & SERV NECK [place] [address] [facility] GUIDANCE 4 MEDICAL L NEEDLE SERV PLACEMENT FOUNDATIO IMG S&I N FINE 56576 [facility] NEEDLE 4 MEDICAL L ASPIRATIO SERV N WITH FOUNDATIO IMAGING N GUIDANCE CT THORAX 92134 SERENA SERENA W/O 4 [facility] CONTRAST INC INC MATERIAL RADEX 62714 SERENA SERENA HAND 4 [facility] MINIMUM 3 [place] [address] [facility] SURG 4 [facility] ODALIS PATHOLOGY GROSS&OLGA LIDIA ROSCOPIC EXAM CYTP EVAL 52122 [facility], MELISSA FINE 4 [facility] ODALIS NEEDLE ASPIRATE INTERP & REPORT FINE 09034 [place] NEEDLE 4 MEDICAL EDER ASPIRATIO [place]AG[place] [address] [facility] LIZA GUIDANCE 4 MEDICAL EDER NEEDLE IMAGING PLACEMENT ASS IMG S&I US SOFT 30988 SERENA MANCILLAON TISSUE 4 [facility] HEAD & INC [place] [address] SERENA LYONS BLOOD/URI 4 [facility] C ACID INC INC SEDIMENTA 15185 SERENA LYONS TIPOP RATE 4 [facility] RBC INC INC NON-AUTOM ATED PROSTATE G0103 SERENA LYONS CANCER 4 [facility] SCREENING INC INC ; PSA TEST BLOOD 13513 SERENA LYONS COUNT 4 [facility] COMPLETE INC INC AUTO&AUTO DIFRNTL WBC URNLS DIP 18373 SERENA LYONS 4 [facility] STICK/TAB INC INC LET REAGENT AUTO MICROSCOP Y RHEUMATOI 96506 SERENA LYONS D FACTOR 4 [facility] QUANTITAT INC INC [place] COMPREHEN 35920 SERENA LYONS SIVE 4 [facility] METABOLIC INC INC PANEL COLLECTIO 14228 SERENA LYONS N VENOUS 4 [facility] BLOOD INC INC VENIPUNCT URE SPMTRY 72914 JOHNNIE BLAIR W/VC 4 MJ MJ EXPIRATOR Y STEPHEN W/WO MXML VOL VNTJ ECG 30613 JOHNNIE BLAIR ROUTINE 4 MJ MJ ECG W/LEAST 12 LDS W/I&R RADEX 44524 [place] HAND 4 MEDICAL OLGA LIDIA MINIMUM 3 IMAGING VIEWS ASS PET 11524 [facility] IMAGING [address] [facility] ATTENUATI ON SKULL BASE MID-THIGH NONEMERG A0120 FEDERATED FEDERATED TRNSPRT: 4 TRANS MINI-BUS TRANSPORT SERVBLUEG NDN ATION SER SIM AREA/OTH SYS FLUORODEO A9552 [facility] XYGLUCOSE 4 Y Y F-18 FDG [facility] DX UP TO 45 MCI RADEX 15222 [place] HAND 4 MEDICAL OLGA LIDIA MINIMUM 3 IMAGING VIEWS ASS CAST Q4022 [facility] PETTEY SUPPLIES 4 PHYSICIAN MARITZA SHORT ARM S GROUP SPLINT ADULT FIBERGLAS S CLTX 22842 [facility] PETTEY METACARPA 4 PHYSICIAN MARITZA L FX W/O S GROUP MANIPULAT ION EACH BONE RADEX 12707 [place] LIZA HAND 4 MEDICAL EDER MINIMUM 3 IMAGING VIEWS ASS APPLICATI 71762 [facility]ORT 4 [place] MOH ARM EMERGENCY SPLINT PHYS FOREARM-H AND STATIC RADEX 68369 MULLIKEN IRMA RIBS 4 AYAH UNILATERA RADIOLOGY L [address] THORAX 48820 [facility]AH W/CONTRAS RADIOLOGY T ASSOCIAT MATERIAL RADIOLOGI 16674 MULLIKEN IRMA C EXAM 4 AYAH CHEST 2 RADIOLOGY VIEWS ASSOCIAT FRONTAL&L ATERAL Encounters Encounter Start End Date Code Location Performer Type Date OFFICE 95278 OUTPATIEN 7 7 [facility]ALTHCAR T VISIT 5 E MINUTES [facility] - 7 7 [facility] OUTPATIEN E T [facility]PITALS OFFICE 42196 OUTPATIEN 7 7 HEALTHCAR T VISIT 5 E MINUTES [facility] - 7 7 [facility] OUTPATIEN E T HOSPITALS OFFICE 99896 [facility] OUTPATIEN 7 7 MEDICAL T VISIT SERV 25 FOUNDATIO MINUTES N OFFICE 94316 [facility] ELAYI CONSULTAT 7 7 MEDICAL ION SERV NEW/ESTAB FOUNDATIO PATIENT N 60 MIN OFFICE 66563 [facility] OUTPATIEN 7 7 MEDICAL T VISIT SERV 25 FOUNDATIO MINUTES N OFFICE 26146 [facility] 7 HEALTH T VISIT SOLUTIONS 25 IN MINUTES [facility] OUTPATIEN E T [facility]OSPITALS OFFICE 07979 OUTPATIEN 7 7 HEALTHCAR T VISIT 5 E MINUTES [facility]OSPIT[facility] OFFICE 86060 [facility] OUTPATIEN 7 7 MEDICAL T VISIT SERV 25 FOUNDATIO MINUTES [facility] OUTPATIEN E T HOSPITALS OFFICE 49279 OUTPATIEN 7 7 HEALTHCAR T VISIT 5 E MINUTES [facility] - 7 7 [facility] OUTPATIEN E T HOSPITALS OFFICE 14848 [facility] AR[facility] 7 7 MEDICAL T VISIT SERV 25 FOUNDATIO MINUTES N OFFICE 12388 [facility] 7 7 HEALTH T VISIT SOLUTIONS 25 IN MINUTES OFFICE 61554 [facility] 6 6 HEALTH T VISIT SOLUTIONS 15 IN MINUTES OFFICE 22100 [facility] 6 6 MEDICAL T VISIT SERV 25 FOUNDATIO MINUTES N [facility] - 6 6 [facility] OUTPATIEN E [facility] 46040 [facility] 6 6 MEDICAL TIGIST ION SERV NEW/ESTAB FOUNDATIO PATIENT N 60 MIN OFFICE 12832 [facility] 6 6 Y T VISIT 5 HOSPITAL MINUTES OFFICE 43387 TITA VALENZUELA [facility] 6 6 [facility] T [facility]ISIT URGENT 15 TREAT MINUTES HOSPITAL SERENA - [address] [facility] T OFFICE 79258 [facility] OUTPAT[facility] 6 6 PHYSICIAN JAM T VISIT S GROUP 10 MINUTES OFFICE 24238 [facility] 6 6 PHYSICIAN JAM T VISIT S GROUP 15 MINUTES HOSPITAL SERENA - [address] [facility] T OFF[facility] 10959 [facility] 6 6 [facility] T VISIT URGENT 25 TREAT MINUTES [facility]OSPITAL [facility] - 6 6 [facility] OUTPATIEN [facility] SERE[facility] - 6 6 [facility] OUTPATIEN [facility] SERENA - 6 6 [facility] OUTPATIEN INC [facility] SERENA - 5 5 [facility] OUTPATIEN INC T EMERGENCY 02957 SERENA 5 5 MEM H[facility] DEPARTMEN INC T VISIT HIGH/URGE NT SEVERITY OFFICE 89367 [place] [facility] OUTPATIEN 5 5 MEDICAL T VISIT SERV 25 FOUNDATIO MINUTES N HOSPITAL UN[facility]ERSIT - 5 5 Y [facility] T OFFICE 82499 UNIVERSIT [facility] 5 5 Y T VISIT HOSPITAL 15 MINUTES HOSPITAL [facility]ERSIT - 5 5 Y [facility] T OFFICE 67306 [place] [facility] OUTPATIEN 5 5 MEDICAL T VISIT SERV 25 FOUNDATIO MINUTES N OFFICE 05967 [place] [facility] CONS[facility] 5 5 MEDICAL ION SERV NEW/ESTAB FOUNDATIO PATIENT N 40 MIN OFFICE 39200 JOHNNIE BLAIR OUTPATIEN 4 4 MJ MJ T VISIT 15 MINUTES HOSPITAL [facility]ERENA - 4 4 [facility] 4 Y [facility] T OFFICE 00647 JOHNNIE [facility]LAIR OUTPATIEN 4 4 MJ MJ T VISIT 25 MINUTES [facility] SERENA - 4 4 [facility] 05928 JOHNNIE [facility]LAIR OUTPATIEN 4 4 MJ MJ T VISIT 15 MINUTES [facility]OSPITAL [facility] - 4 4 [facility] T OFF[facility] 49957 [place] [facility] CON[facility] 4 4 MEDICAL L ION SERV NEW/ESTAB FOUNDATIO PATIENT 60 MIN [facility]OSPITAL [facility] - 4 4 [facility] OUTPATIEN [facility] SERENA - 4 4 [facility] OUTPATIEN [facility] PERIODIC 68380 JOHNNIE BLAIR PREVENTIV 4 4 MJ MJ E MED EST PATIENT 40-64YRS [facility] SERENA - [address] [facility] T OFF[facility] 37174 [facility] 4 PHYSICIAN JAM T VISIT S GROUP 15 MINUTES [facility] UNIVERSIT - 4 4 Y [facility] SERENA - 4 4 [facility] OUTPATIEN [facility] EMERGENCY 04993 [facility] 4 4 [facility] [facility] EMERGENCY T VISIT PHYS MODERATE SEVERITY OFFICE 89222 [facility] [address]
--- OUTSIDE RECORDS SUMMARY | 2017-02-04 14:24 | External Medical Summary Rpt | CCD ---
Author Author , ROSALBA Organization [place] Address Unknown Phone [email or web address] Care Team Providers Care Rent Collector Name Role Phone LOLY-OMER AHM, Unavailable Unavailable LOLY-OMER AHM [facility] [place], Unavailable Unavailable [facility] [place] [facility] [place], Unavailable Unavailable [facility] [place] ALFARIS MOH, ALFARIS Unavailable Unavailable MOH ARAGON, ARAGON Unavailable Unavailable BEINEKE OLGA LIDIA, BEINEKE Unavailable Unavailable OLGA LIDIA HENDERSON ALL, HENDERSON ALL Unavailable Unavailable COMER DB, COMER DB Unavailable Unavailable LIZA EDER, Unavailable Unavailable LIZA EDER ELAYI, ELAYI Unavailable Unavailable [facility] Unavailable Unavailable SERVBLUEGRAS, [facility] TRANS SERVBLUEGRAS [facility]ATED Unavailable Unavailable TRANSPORTATION SER, [facility] BECKETT, BECKETT Unavailable Unavailable [facility] Unavailable Unavailable INC, [facility] Unavailable [facility]available HOSPITAL P, [facility] EUGENE AYAH, SOLIS Unavailable Unavailable [facility], Unavailable Unavailable [facility] BIANCA, BIANCA Unavailable Unavailable BIANCA NAN, BIANCA Unavailable Unavailable NAN [facility] Un[facility], [facility], MERLINE Unavailable Unavailable [facility] Un[facility] Un[facility] LARRY JR DWI, LARRY Unavailable Unavailable JR DWI JOHNNIE MJ, JOHNNIE Unavailable Unavailable MJ JOHNNIE MJ, JOHNNIE Unavailable Unavailable MJ ANGIE, ANGIE Unavailable Unavailable ANGIE CON, ANGIE CON Unavailable Unavailable [facility], Unavailable Unavailable [facility] Unavailable Unavailable ASSOCI, [facility] Unavailable Unavailable AMBULANCE SE, [facility] AMBULANCE SE [facility] Unavailable Unavailable AMBULANCE , [facility] AMBULANCE SE [facility] Unavailable [facility]available [facility], [facility] Unavailable Unavailable URGENT TREAT, [facility] URGENT TREAT PETTEY JAM, PETTEY Unavailable Unavailable JAM RASLAU FLA, RASLAU Unavailable Unavailable FLA SHARP L, SHARP Unavailable Unavailable [facility] Un[facility] Unavailable [facility], [facility], Unavailable Unavailable [facility] Unavailable [place], [facility] HARTLEY TIGIST, HARTLEY Unavailable Unavailable TIGIST LEYLARODONNAKASHARAN, Unavailable Unavailable BRENDENKAYA Purpose Continuity of Care Document - 08-09-2013 through 2016 Problems Code Diagnosis DOS Provider Status [id number] ENCOUNTER 12-24-2016 [facility] FOLLOW SURGERY CIRC SYS [id number] PRESENCE 12-24-2016 [facility] IMPLANTABLE HOSPITALS CARDIAC DEFIBRILLAT OR I255 ISCHEMIC 12-17-2016 [place] [facility] CARDIOMYOPA SERV THY [facility] I517 CARDIOMEGAL 12-17-2016 [place] [facility] Y [facility] E785 HYPERLIPIDE 12-07-2016 [facility] UNSPECIFIED HOSPITALS I2510 [facility]SHD [place] 12-07-2016 CORONARY HEALTHCARE ARTERY W/O HOSPITALS ANGINA PECTORIS M5430 SCIATICA 12-07-2016 UNSPECIFIED HEALTHCARE SIDE HOSPITALS R001 BRADYCARDIA 11-02-2016 [facility] UNSPECIFIED F[facility]ATION R55 SYNCOPE AND 11-02-2016 [place] [facility] COLLAPSE SERV [facility] R69 ILLNESS 11-02-2016 [facility] UNSPECIFIED TRANSPORTAT ION SER R9431 ABNORMAL 11-02-2016 [place] [facility] ELECTROCARD SERV IOGRAM FOUND[facility] Y30659 PERSONAL 11-02-2016 [place] [facility] HISTORY OF SERV NICOTINE FOUNDATION DEPENDENCE [...] E[facility] MYOCARDIAL SOLUTIONS INFARCT IN INVOLV [facility] SITES I9589 OTHER 04-22-2016 [facility] HYPOTENSION [facility] SOLUTIONS IN R0789 OTHER CHEST 04-22-2016 [facility] PAIN [facility]ALTH SOLUTIONS IN R0600 DYSPNEA 04-13-2016 UNSPECIFIED HEALTHCARE HOSPITALS I2119 ST 03-29-2016 [place] [facility] WI INVOLV FOUNDATION OTH CORONARY ART INF WALL I493 VENTRICULAR 03-29-2016 [place] [facility] PREMATURE SERV DEPOLARIZAT FOUNDATION ION I499 CARDIAC 03-29-2016 [place] [facility] ARRHYTHMIA SERV UNSPECIFIED FOUNDATION I2111 ST 03-27-2016 [place] [facility] MYOCARDIAL [facility]OUND[facility] INFARCTION INVOLVING RCA I213 ST 03-27-2016 [place] [facility] MYOCARDIAL [facility] INFARCTION UNS SITE I2582 CHRONIC 03-27-2016 [place] [facility] TOTAL [facility] OCCLUSION FOUNDATION OF CORONARY ARTERY I4581 LONG QT 03-27-2016 [place] [facility] SYNDROME SERV [facility] I472 VENTRICULAR 03-27-2016 [facility] TACHYCARDIA F[facility] I498 OTHER 03-27-2016 [place] [facility] SPECIFIED SERV CARDIAC FOUNDATION ARRHYTHMIAS I959 HYPOTENSION 03-27-2016 [facility] UNSPECIFIED AMBULANCE SE R0602 SHORTNESS 03-27-2016 [place] [facility] OF BREATH SERV FOUNDATION Z743 NEED FOR 03-27-2016 [facility] CONTINUOUS [place] SUPERVISION 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 DISEASE WITHOUT ESOPHAGITIS R4020 UNSPECIFIED 03-18-2016 [place] [facility] COMA [facility] R918 OTHER 03-18-2016 [facility] ABNORMAL FINDING OF LUNG FIELD J00714 OTHER LONG 03-18-2016 [facility] CURRENT DRUG THERAPY Z833 FAMILY 03-18-2016 [place] [facility] HISTORY OF HOSPITAL DIABETES MELLITUS F03618 PERSONAL 03-18-2016 [place] [facility] HISTORY OF HOSPITAL TRAUMATIC BRAIN INJURY M5431 SCIATICA 02-21-2016 [facility] SIDE [facility] URGENT TREAT D21336 PAIN IN 01-17-2016 [place] RIGHT [facility]BOW MEDICAL IMAGING ASS M7022 OLECRANON 01-17-2016 [facility] BURSITIS PHYSICIANS LEFT ELBOW GROUP X37079 PAIN IN 12-20-2015 [place] LEFT MEDICAL FINGERS IMAGING ASS G07535 PAIN IN 12-20-2015 [facility] UNSPECIFIED [facility] FINGERS INC M7021 OLECRANON 12-17-2015 [facility] BURSITIS [facility] RIGHT ELBOW URGENT TREAT G544 LUMBOSACRAL 09-13-2015 [facility] ROOT [facility] DISORDERS INC NEC M545 LOW BACK 09-13-2015 [facility] PAIN [facility] INC E782 MIXED 09-05-2015 [facility] HYPERLIPIDE [facility] URGENT TREAT J301 ALLERGIC 09-05-2015 [facility] RHINITIS [facility] DUE TO URGENT POLLEN TREAT J441 CHRONIC 09-05-2015 [facility] OBSTRUCTIVE [facility] PULMONARY URGENT DZ TREAT W/EXACERBAT ION N401 BENIGN 09-05-2015 [facility] PROSTATIC [facility] HYPERPLASIA URGENT LW URINARY TREAT TRACT SX 2768 HYPOPOTASSE 09-28-2014 [facility] P 39733 RESTLESS 09-28-2014 [facility] SYNDROME INC 4739 UNSPECIFIED 09-28-2014 [facility] SINUSITIS [facility] INC 496 CHRONIC 09-28-2014 [place] AIRWAY MEDICAL OBSTRUCTION IMAGING ASS NEC 5849 ACUTE 09-28-2014 [facility] P UNSPECIFIED 18802 HYPERTROPHY 09-28-2014 [facility] PROSTATE [facility] W/O UR OBST INC & OTH LUTS 7802 SYNCOPE AND 09-28-2014 [facility] COLLAPSE [facility] AMBULANCE SE 7804 DIZZINESS 09-28-2014 [facility] P 7808 GENERALIZED 09-28-2014 [facility] [place] [address] SHORTNESS 09-28-2014 [place] OF BREATH MEDICAL IMAGING ASS 38681 NAUSEA WITH 09-28-2014 [facility] VOMIT[place] [facility] [place] [address] OTHER 09-28-2014 [place] NONSPECIFIC MEDICAL ABNORMAL IMAGING ASS FINDING OF LUNG FIELD 470 DEVIATED 08-31-2014 [place] [facility] SEPTUM FOUNDATION 4780 HYPERTROPHY 08-31-2014 [place] [facility] OF NASAL SERV TURBINATES FOUNDATION 87807 ESOPHAGEAL 08-31-2014 [facility] V7284 UNSPECIFIED 08-31-2014 [facility] PRE-OPERATI VE EXAMINATION 46365 OTHER 06-26-2014 [facility] NASAL CAVITY AND SINUSES 5239 UNSPECIFIED 06-26-2014 [facility] AND PERIODONTAL DISEASE 7099 UNSPECIFIED 06-26-2014 [facility] OF SKIN&SUBCUT ANEOUS TISSUE 7840 HEADACHE 06-26-2014 [facility] 4610 ACUTE 04-03-2014 JOHNNIETOMMIE BARKER MAXILLARY SINUSITIS 4611 ACUTE 04-03-2014 JOHNNIE MJ FRONTAL SINUSITIS 2410 NONTOXIC 03-28-2014 [facility] UNINODULAR [facility] GOITER INC 7213 LUMBOSACRAL 03-28-2014 [facility] SPONDYLOSIS IMAGING ASS WITHOUT MYELOPATHY 2374 NEOPLASM 03-15-2014 [place] [facility] UNCERTAIN SERV BHV [facility]OUNDATION OTH&UNSPEC ENDOCRN GLANDS 2409 GOITER, 03-15-2014 [place] [facility] UNSPECIFIED OF [place] [facility] 4779 ALLERGIC 02-26-2014 JOHNNIE BARKER RHINITIS CAUSE UNSPECIFIED 87317 UNSPECIFIED 02-26-2014 JOHNNIE BARKER ARTHROPATHY MULTIPLE SITES 7242 LUMBAGO 02-26-2014 JOHNNIE BARKER 4928 OTHER 02-13-2014 [facility] EMPHYSEMA [facility] INC 37177 OBSTRUCTIVE 01-16-2014 JOHNNIE BARKER CHRONIC BRONCHITIS WITHOUT EXACERBAT V5419 AFTERCARE 01-04-2014 [place] HEALING MEDICAL TRAUMATIC IMAGING ASS FRACTURE OTHER BONE 70779 PAIN IN 11-22-2013 [facility] JOINT, SITE [facility] INC UNSPECIFIED 73853 URINARY 11-22-2013 [facility] FREQUENCY [facility] INC V700 ROUTINE 11-14-2013 JOHNNIE BARKER GENERAL MEDICAL EXAM@HEALTH CARE FACL 65209 THYROTOX 10-25-2013 [place] [facility] W/O SERV GOITER/OTH FOUNDATIO CAUSE W/O CRISIS 94451 OTHER 10-25-2013 [place] [facility] DISEASES OF SERV LUNG NOT FOUNDATIO ELSEWHERE CLASSIFIED 44795 10-25-2013 [facility] TRANSPORTAT ION SER V711 OBSERVATION 10-25-2013 [facility] SUSPECTED MALIGNANT NEOPLASM 47847 CLOSED 10-11-2013 [facility] FRACTURE OF PHYSICIANS SHAFT OF GROUP METACARPAL BONE 7822 LOCALIZED 10-07-2013 [place] SUPERFICIAL MEDICAL SWELLING IMAGING ASS [place] 30539 CLOSED 10-07-2013 [facility] FRACTURE N EMERGENCY METACARPAL PHYS BONE SITE UNSPECIFIED E9289 UNSPECIFIED 10-07-2013 [facility] ACCIDENT N EMERGENCY PHYS 35015 CLOSED 08-21-2013 [facility] FRACTURE OF RADIOLOGY ONE RIB ASSOCIAT 19846 SOLITARY 08-14-2013 [facility] [place] NODULE [facility] 8483 SPRAIN AND 08-14-2013 [facility] STRAIN OF [facility] RIBS [facility] 17737 CHEST PAIN 08-09-2013 [facility] UNSPECIFIED RADIOLOGY ASSOCIAT 9599 INJURY 08-09-2013 [facility] OTHER AND RADIOLOGY UNSPECIFIED ASSOCIAT UNSPECIFIED SITE [...] 77 LE ZA 61 17 17 71 FL 5 37 IN UG E S 10 [...] 88 -1 -0 .0 00 RL ti FL 40 00 IS ve OL 82 20 [...] 77 LE ZA 61 17 [address] IN UG E S [...] 88 -1 -0 .0 00 RL ti FL 40 4- 8- 00 00 IS ve [...] 88 -2 -2 .0 00 RL ti FL 40 8- 5- 00 00 IS ve [...] 77 LE ZA 61 17 17 71 FL 5 37 IN UG E S 10 [...] 77 LE ZA 61 17 [address] ABBASI UG E S [...] 00 2- 1- 00 00 IS ve FL 51 20 20 77 LE IL 30 17 17 68 5 3 09 UG MG S TA BL ET LI 68 06 07 30 30 00 CA Ac SI 18 -1 -1 .0 00 RL ti NO 00 7- 4- 00 00 IS ve FL 51 20 20 77 LE IL 20 [...] 00 5- 3- 00 00 IS ve FL 51 20 20 77 LE IL 20 17 [address] 2[address] UG 5 S MG TA BL ET CY 69 05 06 30 30 00 CA Ac CL 09 -2 -2 .0 00 RL ti OB 70 5- 3- 00 00 IS ve EN 84 20 20 77 LE ZA 61 17 [address] IN UG E S [...] 88 -3 -2 .0 00 RL ti FL 40 1- 3- 00 00 IS ve [...] 88 -0 -2 .0 00 RL ti FL 40 1- 6- 00 00 IS ve [...] NO 00 6 9 00 IS ve FL 51 20 20 77 LE IL 20 17 [address] 2. UG 5 S MG TA BL ET CY 69 04 05 30 30 00 CA Ac CL 09 -2 -1 .0 00 RL ti OB 70 00 IS ve EN 84 20 20 77 LE ZA 61 17 17 39 FL 5 98 IN UG E S 10 [...] 37 -0 -2 .0 00 RL ti FL 80 3- 8- 00 00 IS ve [...] 76 LE ZA 92 17 17 47 FL 8 51 IN UG E S 10 MG TA BL ET LI 68 03 04 30 30 00 CA Ac SI 18 -2 -2 .0 00 RL ti NO 00 00 IS ve FL 51 20 20 77 LE IL 20 [...] 76 LE ZA 93 17 [address] IN UG E S [...] 03 -2 -2 .0 00 RL ti FL 70 7- 4- 00 00 IS ve [...] 76 LE ZA 93 17 [address] IN UG E S [...] 03 -1 -1 .0 00 RL ti FL 70 8- 0- 00 00 IS ve [...] 76 LE ZA 11 17 [address] ABBASI UG E S [...] 00 2- 0- 00 00 IS ve FL 51 20 20 76 LE IL 30 16 [address] UG MG S TA BL ET ME 00 12 01 18 90 00 CA Ac TO 37 -1 -1 0. 00 RL ti FL 80 9- 3- 00 00 IS ve OL 01 20 20 0 76 LE OL 80 16 17 74 1 80 TA UG RT S RA TE 25 MG TA B Procedures Procedure DOS Code Location Performer Comment RADIOLOGI 68887 [place] ANGIE C 7 MEDICAL EXAMINATI SERV ON CHEST FOUNDATIO SINGLE N VIEW FRONTAL INSJ/RPLC 56170 [place] ELAYI MT PERM 7 MEDICAL DFB SERV W/TRNSVNS FOUNDATIO LDS N 1/DUAL CHMBR ECG 02817 [place]LINE ROUTINE 7 MEDICAL ECG SERV [...] SER ATION SER AREA/OTH SYS INJECTION A9585 [facility] 7 HEALTHCAR HEALTHCAR GADOBUTRO E E L 0.1 ML [facility] CARDIAC 47223 [place] ZAGUROVSK MRI FOR 7 MEDICAL AYA VELOCITY SERV FLOW FOUNDATIO MAPPING N CARDIAC 58776 [place] ZAGUROVSK MRI W/WO 7 MEDICAL AYA CONTRAST SERV & FURTHER FOUNDATIO SEQ N NONINVASI 44702 [place] VE 7 HEALTHCAR HEALTHCAR EAR/PULSE E E OXIMETRY [facility] SINGLE DETER ECG 82141 [place] ROUTINE 6 MEDICAL ECG SERV W/LEAST FOUNDATIO 12 LDS N I&R ONLY NATRIURET 74249 [facility] IC 6 HEALTHCAR HEALTHCAR PEPTIDE E E [facility] BASIC 25029 [facility] METABOLIC 6 HEALTHCAR HEALTHCAR PANEL E E CALCIUM [facility] [place] [place] [address] [place] MAGNESIUM 6 HEALTHCAR HEALTHCAR E E HOSPITALS HOSPITALS COLLECTIO 23920 [facility] N VENOUS 6 HEALTHCAR HEALTHCAR BLOOD E E VENIPUNCT HOSPITALS HOSPITALS URE ECG 82612 [place] BECKETT ROUTINE 6 MEDICAL ECG SERV W/LEAST FOUNDATIO 12 LDS N I&R ONLY AMB A0431 AIR AIR SERVICE 6 METHODS METHODS CONVNTION [facility] AIR SRVC TRANSPORT [address] AMB A0427 [facility] SERVICE [address] [place] [address] ALS AMBULANCE AMBULANCE EMERGENCY SE SE TRANSPORT LEVEL 1 PRQ 58037 [place] LOLY-LAT TRLUML 6 MEDICAL IF AHM CORONRY SERV TOT FOUNDATIO OCCLUS N REVASC WI ONE VSL ECG 15659 [facility] MERLINE CHI ROUTINE 6 MEDICAL ECG SERV W/LEAST FOUNDATIO 12 LDS N I&R ONLY RADIOLOGI 25803 [place] ANGIE CON C 6 MEDICAL EXAMINATI SERV ON CHEST FOUNDATIO SINGLE N VIEW FRONTAL GROUND A0425 [facility] MILEAGE [address] [place] [address] PER AMBULANCE AMBULANCE STATUTE SE SE MILE COLLECTIO 22507 [facility] N VENOUS 6 Y Y BLOOD [facility] VENIPUNCT URE ORGANIC 61559 [facility] ACID 1 6 [facility] [place] HEMOGL[facility] 47374 [facility] N 6 Y Y GLYCOSYLA [facility] DAWIT A1C ARTHROCEN 19723 [facility] PETTEY TESIS 6 PHYSICIAN MARITZA ASPIR&/IN S GROUP J INTERM JT/BURS W/O US INJ J0702 [facility] PETTEY BETAMETHA 6 PHYSICIAN MARITZA SONE S GROUP ACETATE & PHOSPHATE 3 MG NONEMERG A0120 FEDERATED FEDERATED TRNSPRT: 6 MINI-BUS TRANSPORT TRANSPORT MTN ATION SER ATION SER AREA/OTH SYS RADEX 08240 [facility] ELBOW 6 [facility] COMPLETE INC INC MINIMUM 3 VIEWS RADEX 29755 [facility] FINGR 6 [facility] MINIMUM 2 INC INC VIEWS ELECTROEN 29347 [facility] CEPHALOGR 6 [facility] AM W/REC INC INC AWAKE&CONNOR WSY THERAPEUT 34348 SERENA LYNOS IC PX 1/> 6 MEM HOS[facility] AREAS INC INC EACH 15 MIN EXERCISES THERAPEUT 53601 [facility] IC PX 1/> 6 MEM H[facility]OS[facility] AREAS INC INC EACH 15 MIN EXERCISES APPL 60388 [facility] MODALITY 6 [facility]OS[facility] 1/> AREAS INC INC ULTRASOUN D EA 15 MIN PHYSICAL 75381 [facility] THERAPY 6 [facility] [place] [address] [facility] HEAD/BRAI 6 [facility] N W/O INC INC CONTRAST MATERIAL NONEMERG A0120 FEDERATED FEDERATED TRNSPRT: 6 MINI-BUS TRANSPORT TRANSPORT MTN ATION SER ATION SER AREA/OTH SYS HANDLG&/O 08057 TITA VALENZUELA R CONVEY 6 [facility] URGENT FOR TR TREAT OFFICE TO LAB COLLECTIO 05789 [facility]ITA Hyatt VENOUS 6 [facility] BLOOD URGENT VENIPUNCT TREAT URE COLLECTIO 09741 S[facility] N VENOUS 5 [facility] BLOOD INC INC VENIPUNCT URE HOSPITAL G0378 [facility] OBSERVATI 5 [facility] ON INC INC SERVICE PER HOUR BASIC 74586 [facility] METABOLIC 5 MEM [facility] PANEL INC INC CALCIUM TOTAL ECG 27304 S[facility] ROUTINE 5 [facility] ECG INC INC W/LEAST 12 LDS TRCG ONLY W/O I&R RADEX 78579 [place] [facility] ALL ABDOMEN 5 MEDICAL COMPL IMAGING W/DCBTS&/ ASS ERC VIEWS CREATINE 18026 [facility] KINASE 5 [facility] TOTAL INC INC TOBACCO 84584 S[facility] USE 5 [facility] CESSATION INC INC INTERMEDI ATE 3-10 MINUTES AMB A0422 [facility] OXYGEN&O2 5 [facility] AMBULANCE AMBULANCE [place] [address] [facility] INFUSION 5 [facility] THERAPY/P INC INC ROPHYLAXI S /DX 1ST TO 1 HR RADIOLOGI 68625 HEATHER HENDERSON ALL C EXAM 5 MEDICAL CHEST 2 IMAGING VIEWS ASS FRONTAL&L ATERAL ECG 78519 [facility] JUAREZ JR ROUTINE 5 [facility] HOSPITAL W/LEAST P 12 LDS I&[place] [address] SERENA [facility]NA TROPONIN 5 MEM HOS[facility] QUANTITAT INC INC [place] BLOOD 28776 S[facility]NA [facility]ERENA COUNT 5 MEM H[facility] COMPLETE INC INC AUTO&AUTO DIFRNTL [facility]BC H[facility]PITAL G0378 [facility]NA [facility] OBSERVATI 5 [facility] ON INC INC SERVICE PER HOUR CREATINE 67069 S[facility] L[facility]ONS KINASE MB 5 MEM HOS[facility] FRACTION INC INC ONLY GROUND A0425 [facility] MILEAGE [address] [facility] PER AMBULANCE AMBULANCE STATUTE SE SE MILE AMBULANCE A0429 [facility] SERVICE [facility] BLS AMBULANCE AMBULANCE EMERGENCY SE SE TRANSPORT COMPREHEN 46326 S[facility]NA [facility]NA SIVE 5 [facility] H[facility] METABOLIC INC INC PANEL COLLECTIO 61638 [facility] UNIVERSIT N VENOUS 5 Y Y BLOOD [facility] VENIPUNCT URE C-REACTIV 62590 [facility] UNIVERSIT E PROTEIN 5 Y Y HOSPITAL [facility] COMPREHEN 13916 [facility] 5 Y Y METABOLIC [facility] PANEL BLOOD 80428 [facility] UNIVERSIT COUNT 5 Y Y COMPLETE [facility] AUTOMATED ECG 70900 [place] MERLINE CHI ROUTINE 5 MEDICAL ECG SERV W/LEAST FOUNDATIO 12 LDS N I&R ONLY RHEUMATOI 61823 UNIVERSIT UNIVERSIT D FACTOR 5 Y Y QUANTITAT [facility] HOSPITAL OH HEPATITIS 02456 UNIVERSIT UNIVERSIT C 5 Y Y ANTIBODY HOSPITAL HOSPITAL ECG 63208 [facility] UNIVERSIT ROUTINE 5 Y Y ECG [facility] W/LEAST 12 LDS TRCG ONLY W/O I&R PROTHROMB 13971 [facility] UNIVERSIT IN TIME 5 [place] [address] [facility] UNIVERS BLOOD/URI 5 Y Y C ACID [facility] HOSPITAL SEDIMENTA 85754 [facility] TION RATE 5 Y Y RBC HOSPITAL HOSPITAL AUTOMATED THROMBOPL 28990 [facility] ASTIN 5 Y Y TIME HOSPITAL HOSPITAL PARTIAL PLASMA/WH OLE BLOOD ANTINUCLE 64724 [facility] AR 5 Y Y ANTIBODIE [facility] [place] [address] [place] RASLAU MAXILLOFA 5 MEDICAL FLA CIAL W/O SERV CONTRAST FOUNDATIO MATERIAL N RADEX 70496 [facility] SPINE 4 [facility] LUMBOSACR INC INC AL MINIMUM 4 [place] [address] [facility] THYROID 4 MEM HOS[facility] MEM HOS[facility] STIMULATI INC INC NG HORMONE TSH CYTP EVAL 04848 [facility] 4 Y Y NEEDLE HOSPITAL HOSPITAL ASPIRATE INTERP & REPORT US SOFT 61981 [facility] TISSUE 4 MEDICAL L HEAD & SERV NECK [place] [address] [facility] GUIDANCE 4 MEDICAL L NEEDLE SERV PLACEMENT FOUNDATIO IMG S&I N FINE 67793 [facility] NEEDLE 4 MEDICAL L ASPIRATIO SERV N WITH FOUNDATIO IMAGING N GUIDANCE CT THORAX 69155 [facility] W/O 4 [facility] CONTRAST INC INC MATERIAL RADEX 56641 [facility] S[facility]NA HAND 4 [facility] MINIMUM 3 [place] [address] [facility], HOMEWORTH SURG 4 [facility] ODALIS PATHOLOGY GROSS&OLGA LIDIA ROSCOPIC EXAM CYTP EVAL 01035 [facility], MELISSA FINE 4 [facility] ODALIS NEEDLE ASPIRATE INTERP & REPORT FINE 59715 [place] LIZA NEEDLE 4 MEDICAL EDER ASPIRATIO [place] [address] [facility] LIZA GUIDANCE 4 MEDICAL EDER NEEDLE IMAGING PLACEMENT ASS IMG S&I US SOFT 61926 SERENA MANCILLAON TISSUE 4 MEM HOSP [facility]OSP HEAD & INC [place] [address] [facility] BLOOD/URI 4 MEM HOSP MEM HOSP C ACID INC INC SEDIMENTA 39387 [facility] TIPOP RATE 4 MEM HOS[facility]OS[facility] RBC INC INC NON-AUTOM ATED PROSTATE G0103 [facility] CANCER 4 [facility] SCREENING INC INC ; PSA TEST BLOOD 38967 [facility] COUNT 4 [facility] COMPLETE INC INC AUTO&AUTO DIFRNTL WBC URNLS DIP 32071 [facility] STICK/TAB INC INC LET REAGENT AUTO MICROSCOP Y RHEUMATOI 70888 [facility] D FACTOR 4 [facility] QUANTITAT INC INC [place] COMPREHEN 56081 S[facility]NA [facility] SIVE 4 [facility] METABOLIC INC INC PANEL COLLECTIO 99782 [facility]ERENA [facility] N VENOUS 4 [facility] BLOOD INC INC VENIPUNCT URE SPMTRY 08829 JOHNNIE BLAIR W/VC 4 MJ MJ EXPIRATOR Y STEPHEN W/WO MXML VOL VNTJ ECG 54105 JOHNNIE BLAIR ROUTINE 4 MJ MJ ECG W/LEAST 12 LDS W/I&R RADEX 08051 [place] [facility] HAND 4 MEDICAL OLGA LIDIA MINIMUM 3 [place] V[place] [address] [facility] IMAGING [address] [facility] ATTENUATI ON SKULL BASE MID-THIGH NONEMERG A0120 FEDERATED FEDERATED TRNSPRT: 4 TRANS MINI-BUS TRANSPORT SERVBLUEG MSN ATION SER SIM AREA/OTH SYS FLUORODEO A9552 [facility] XYGLUCOSE 4 Y Y F-18 FDG [facility] DX UP TO 45 MCI RADEX 40140 [place] [facility] HAND 4 MEDICAL OLGA LIDIA MINIMUM 3 IMAGING VIEWS ASS CAST Q4022 [facility] PETTEY SUPPLIES 4 PHYSICIAN MARITZA SHORT ARM S GROUP SPLINT ADULT FIBERGLAS S CLTX 49519 [facility] PETTEY METACARPA 4 PHYSICIAN MARITZA L FX W/O S GROUP MANIPULAT ION EACH BONE RADEX 12490 [place] [facility] HAND 4 MEDICAL EDER MINIMUM 3 IMAGING VIEWS ASS APPLICATI 26063 [facility] SHORT 4 [facility] MOH ARM EMERGENCY SPLINT PHYS FOREARM-H AND STATIC RADEX 04535 [facility] IRMA RIBS 4 AYAH UNILATERA RADIOLOGY L [address] THORAX 25383 [facility] W/CONTRAS RADIOLOGY T ASSOCIAT MATERIAL RADIOLOGI 42654 ALEXANDER IRMA C EXAM 4 AYAH CHEST 2 RADIOLOGY VIEWS ASSOCIAT FRONTAL&L ATERAL Encounters Encounter Start End Date Code Location Performer Type Date OFFICE 60309 OUTPATIEN 7 7 [facility] T VISIT 5 E MINUTES [facility] [place] [facility] OFF[facility] 31079 OUTPATIEN 7 7 [facility] T VISIT 5 E MINUTES [facility] [place] [facility] OFFICE 53684 [facility] OUTPATIEN 7 7 MEDICAL T VISIT SERV 25 FOUNDATIO MINUTES N OFFICE 09671 [facility] CONSULTAT 7 7 MEDICAL ION SERV NEW/ESTAB [facility] PATIENT N 60 MIN OFFICE 41361 [facility] OUTPATIEN 7 7 MEDICAL T VISIT SERV 25 [facility]OUNDATIO MINUTES N OFFICE 40031 [facility] T [facility]ISIT SOLUT[facility] 25 IN MINUTES [facility] OFFICE 21425 OUTPATIEN 7 7 [facility] T VISIT 5 E MINUTES [facility] OFFICE 10803 [facility] OUTPATIEN 7 7 MEDICAL T VISIT SERV 25 FOUNDATIO MINUTES [facility] E T [facility]PITALS OFFICE 81537 OUTPATIEN 7 7 [facility] T VISIT 5 E MINUTES [facility] [place] - 7 7 [facility] OUTPATIEN E T HOSPITALS OFFICE 52624 BARRY ARAGON [facility] 7 7 MEDICAL T VISIT SERV 25 FOUNDATIO MINUTES N OFFICE 18524 [facility] 7 7 HEALTH T VISIT SOLUTIONS 25 IN MINUTES OFFICE 40107 [facility] 6 6 HEALTH T VISIT SOLUTIONS 15 IN MINUTES OFFICE 20067 [facility] 6 6 MEDICAL T VISIT SERV 25 FOUNDATIO MINUTES N HOSPITAL [place] - [address] [facility] 50649 [facility] 6 6 MEDICAL TIGIST ION SERV NEW/ESTAB FOUNDATIO PATIENT N 60 MIN OFFICE 85081 [facility] 6 6 Y T VISIT 5 HOSPITAL MINUTES OFFICE 53212 TITA VALENZUELA [facility] 6 6 [facility] T VISIT URGENT 15 TREAT MINUTES HOSPITAL [facility] - 6 6 [facility] OUTPATIEN [facility] T OFFICE 70833 [facility] 6 PHYSICIAN JAM T VISIT S GROUP 10 MINUTES OFFICE 43119 [facility] 6 6 PHYSICIAN JAM T VISIT S GROUP 15 MINUTES HOSPITAL [facility] - 6 6 [facility] OUTPATIEN [facility] T OFFICE 64348 [facility] 6 6 [facility] T VISIT URGENT 25 TREAT MINUTES HOSPITAL [facility] 6 6 [facility] OUTPATIEN [facility] H[facility]PITAL SERENA - 6 6 [facility] OUTPATIEN [facility] SERENA - 6 6 [facility] OUTPATIEN INC [facility] SERENA - 5 5 [facility] OUTPATIEN INC T EMERGENCY 70508 [facility] 5 5 [facility] DEPARTMEN INC T VISIT HIGH/URGE NT SEVERITY OFFICE 82630 [place] [facility] OUTPATI[facility] 5 5 MEDICAL T VISIT SERV 25 FOUNDATIO MINUTES N HOSPITAL UNIVERSIT - 5 5 Y [facility] T OFFICE 67235 [facility] 5 5 Y T VISIT HOSPITAL 15 MINUTES HOSPITAL UNIVERSIT - 5 5 Y [facility] T OFFICE 46671 [place] [facility] OUTPATI[facility] 5 5 MEDICAL T VISIT SERV 25 FOUNDATIO MINUTES N OFFICE 90516 [place] [facility] 5 5 MEDICAL ION SERV NEW/ESTAB FOUNDATIO PATIENT N 40 MIN OFFICE 69685 JOHNNIE BLAIR OUTPATIEN 4 4 MJ MJ T VISIT 15 MINUTES HOSPITAL [facility] - 4 4 [facility] 4 4 Y [facility] T OFFICE 73880 JOHNNIE BLAIR OUTPATIEN 4 4 MJ MJ T VISIT 25 MINUTES [facility] SERENA - 4 4 [facility] 48039 JOHNNIE [facility]LAIR OUTPATIEN 4 4 MJ MJ T VISIT 15 MINUTES HOSPITAL [facility] - 4 4 [facility] 45942 [place] [facility] 4 4 MEDICAL L ION SERV NEW/ESTAB FOUNDATIO PATIENT 60 MIN HOSPITAL [facility]ERENA - 4 4 [facility] OUT[facility]IEN [facility] SERENA - 4 4 [facility] OUTPATIEN [facility] PERIODIC 74387 JOHNNIE BLAIR PREVENTIV 4 4 MJ MJ E MED EST PATIENT 40-64YRS [facility] SERENA - 4 4 [facility] OUTPATIEN [facility] T OFFICE 66641 [facility] 4 4 PHYSICIAN JAM T VISIT S GROUP 15 MINUTES [facility] UNIVERSIT - [address] [facility] SERENA - 4 4 [facility] OUTPATIEN [facility] EMERGENCY 99232 [facility] 4 4 [facility] EMERGENC[facility] T VISIT PHYS MODERATE SEVERITY OFFICE 71410 [facility] [address]
--- OUTSIDE RECORDS SUMMARY | 2017-02-04 14:26 | External Medical Summary Rpt | CCD ---
Demographics Preferred Language Frisian Marital Status Unknown Islam Affiliation Unknown Race Unknown Ethnic Group Unknown Author Author , ROSALBA NAVARRETE Address Unknown Phone Immunization No patient found.
--- OUTSIDE RECORDS SUMMARY | 2017-02-04 14:26 | External Medical Summary Rpt | CCD ---
Demographics Preferred Language Mongolian Marital Status Unknown Anabaptism Affiliation Unknown Race Unknown Ethnic Group Unknown Author Author , ROSALBA NAVARRETE Address Unknown Phone Immunization No patient found.
--- OUTSIDE RECORDS SUMMARY | 2017-02-04 14:26 | External Medical Summary Rpt ---
Author Author ROSALBA Lindsey, [employer] Organization [employer] Address Unknown Phone Unavailable
== END 2017-01-27 14:28 | disposition home or self-care (01) ==
LOC: UTC 13:34
DX: S83.422A Sprain of lateral collateral ligament of left knee, initial encounter (principal); F17.210 Nicotine dependence, cigarettes, uncomplicated; Z79.82 Long term (current) use of aspirin; J44.9 Chronic obstructive pulmonary disease, unspecified; W17.2XXA Fall into hole, initial encounter; Y92.89 Other specified places as the place of occurrence of the external cause